=== PATIENT | male | born 1955 | race Caucasian/White ===

== ENCOUNTER 2017-05-06 20:36 | Inpatient (IN) ==
[2017-05-06] MEDS ORDERED: ALBUTEROL/IPRATROPIUM 3 ML NEB RESP TX STA (21:34)
[2017-05-06 21:53] LABS: Basophils % 0.1 % (0.0-0.8); Eosinophils % 0.4 % (0.00-10.9); Hematocrit 27.5 VOL% (42.0-52.0); Hemoglobin 9.6 GM/DL (14.0-18.0); Immature Granulocytes % 0.6 %; Immature Granulocytes Absolute 0.06 #; Lymphocytes % 9.6 % (21.2-54.2); Mean Corpuscular HGB Conc 34.9 GM/DL (32-36); Mean Corpuscular Hemoglobin 32 PG (27-34); Mean Corpuscular Volume 90.2 FL (87-102); Mean Platelet Volume 10.4 FL (9.6-12.0); Monocytes # 1.1 10*3/uL (0.11-0.8); Monocytes % 10.7 % (1.7-12.7); Neutrophils # 8.4 10*3/uL (1.4-7.4); Neutrophils % 78.6 % (38.7-73.9); Platelet Count 306 T/CUMM (130-400); Red Blood Count 3.05 MC/CUMM (3.8-5.5); White Blood Count 10.6 T/CUMM (4-12)
[2017-05-06] MEDS: ALBUTEROL 2.5 MG/3 ML NEB RESP TX SCH ×2 (22:00→22:20)
[2017-05-06 22:11] LABS: Apearance,Urine CLEAR (Clear); Bacteria,Urine Occasional /HPF (Few); Bilirubin,Urine Negative (Negative); Blood, Urine Small mg/dL (Negative); Glucose,Urine (UA) Negative (Negative); Ketones,Urine Negative (Negative); Mucus,Urine Occasional /LPF (Occasional); Nitrite,Urine Negative (Negative); Protein,Urine Negative; Urine Color Straw (Yellow); Urine Specific Gravity 1.003 (1.001-1.035); Urine Urobilinogen < 2.0 EU/DL (0.2-1.0); WBC,Urine 2 /HPF (0-6)
[2017-05-06 22:13] LABS: Alanine Aminotransferase 77 U/L (16-61); Albumin 2.3 G/DL (3.4-5.0); Alkaline Phosphatase 192 U/L (45-117); Aspartate Amino Transferase 55 U/L (0-37); Blood Urea Nitrogen 8 MG/DL (7-18); Calcium 8.2 MG/DL (8.5-10.1); Glucose 108 MG/DL (74-106); Magnesium 1.8 MG/DL (1.8-2.4); Osmolality,Calculated 253.2 MOS/KG (273-304); Sodium 127 MMOL/L (136-145); Troponin I Only < 0.015 NG/ML (0.00-0.045)
[2017-05-06 22:42] LABS: Platelet Estimate Adequate
[2017-05-06] MEDS ORDERED: PROMETHAZINE 25 MG/1 ML VIAL IM PRN (23:24)
[2017-05-06] MEDS ORDERED: DEXTROSE 5% NACL 0.45% 1,000 ML IV SCH (23:30)
[2017-05-06] MEDS ORDERED: MORPHINE 10 MG/1 ML VIAL IV STA (23:30)
[2017-05-06] MEDS ORDERED: ONDANSETRON 4 MG/2 ML VIAL IV STA (23:30)
[2017-05-06] MEDS ORDERED: methylPREDNISolone SOD SUC 125 MG/2 ML VIAL IV STA (23:32)
[2017-05-06] MEDS ORDERED: ONDANSETRON 4 MG/2 ML VIAL ONE (23:35)
[2017-05-06] MEDS ORDERED: MORPHINE 2 MG/1 ML SYRINGE ONE (23:36)
[2017-05-06] MEDS ORDERED: methylPREDNISolone SOD SUC 125 MG/2 ML VIAL ONE (23:36)
--- NOTE | 2017-05-07 00:26 | Emergency Department Note ---
I, Meghan Cortes, am scribing for, and in the presence of, Riley Hernandez MD 21: 40. IMary Kevin Lee, MD, personally performed the services described in this documentation, ascribed by Meghan Cortes in my presence, and it is both accurate and complete . Arrival - Arrival Chief Complaint: Shortness of Breath Stated Complaint: sob/had a cather removed today/has not voided much ED Nursing Triage Note: TO ER PER WHEELCHAIR. WAS SEEN BY UROLOGIST TODAY AND HAD CATHETER TAKEN OUT, SINCE THEN PATIENT HAS NOT BEEN ABLE TO VOID. PATIENT ALSO REPORTS HAVING SOME SHORTNESS OF BREATH THAT BEGAN EARLY THIS AM AROUND 0630. PATIENT STATES HAS BEEN RUNNING A LOW GRADE FEVER WELL. RECENTLY HAD PORTION OF HIS LUNG REMOVED. Mode of Arrival: Wheelchair Limitations: No Limitations Source: Patient, Significant other - History of Present Illness HPI Narrative: Pt is a 62 y/o male who came to ED with c/o SOB that started this morning and has worsened throughout the day. Pt had left lung removed by Dr. Acevedo in [place] on April 14, 2017, due to CA found and reports exercising daily until today. Pt had catheter taken out today at Dr. Alfie Argueta, and no output since, along with fever running at 100.4-100.5. Spouse notes pt hasbeen wearing compression hoses due to swelling bilateral lower extremities. Pt's PCP is Dr. El Argueta, and was going to do ECHO but waiting til insurance approves for next week. Pt also has enlarged prostate. Pt is a smoker. Onset (ago): hour(s) Consistency: constant Severity: moderate Severity scale (1-10): 8 Quality: fullness Allergies/Adverse Reactions: Allergies Allergy/AdvReac Type Severity Reaction Status Date / Time Gatifloxacin [From Tequin] Allergy Intermediate RASH Verified 05/06/17 21:17 Home Medications: Home Medications Medication Instructions Recorded Confirmed Type Hydroxychloroquine [Plaquenil] 200 mg PO DAILY 07/03/16 03/19/17 History Tamsulosin [Flomax] 0.4 mg PO BID 07/03/16 03/19/17 History Omeprazole [Prilosec] 20 mg PO BID 03/05/17 03/10/17 History Tiotropium Br/Olodaterol HCl 4 gm IH DAILY 03/05/17 03/19/17 History [Stiolto Respimat Inhal [place]] Hydrocodone/Acetaminophen 5 - 325 mg PO QID 03/10/17 03/19/17 History [Hydrocodon-Acetaminophen 5-325] Review of System - Review of System 12 point system: reviewed and no additional remarkable complaints except as stated - Review of System Constitutional: Present: fever (100.4-100.5). Absent: chills Head/Ears/Nose/Throat: Absent: sore throat Respiratory: Present: respiratory distress. Absent: cough Cardiovascular: Present: edema (bilateral lower extremities). Absent: chest pain Gastrointestinal: Absent: nausea Genitourinary male: Present: other (no output after catheter taken out) Musculoskeletal: Absent: arm pain, back pain Skin: Absent: rash Neurological: Absent: headache Medical,Surgical,& Family Hx - Medical History Cardio: History of: Hypertension Psychological: No history of: Anxiety Disorders, ADHD, Behavior Problems, Bipolar Disorder, Depression, Previous Suicide Attempt, Psychiatric/Substance Abuse Tx, Schizophrenia, Violent Behavior, Psychiatric Problems Neurology: No history of: Seizures HEENT: History of: Ear Problem, Eye Problem (left eye cataract) Endocrine: History of: Endocrine Problems (Lupus) Rheumatology: History of;: Systemic Lupus Erythematosus Respiratory: History of: Asthma, Bronchitis, COPD, Respiratory Problems (FLU VAC -NO; PNEU VAC-YES 06/2016. EMPHYSEMA, SINUSITIS.) Genitourinary: History of: Prostate Problems Gastrointestinal: History of: GERD Musculoskeletal: History of: Back/Neck Problems (PT BEING TREATED FOR PAIN.), Herniated Disk Hematology: No history of: Blood Transfusion Reaction Other: History of: Cancer (skin cancer) - Surgical History Cardiac Surgeries: Patient Denies: Cardiac Catheterization Thoracic Surgeries: Surgical HX of;: Lobectomy Patient denies;: Organ Transplant HEENT Surgeries: Patient denies: Eye Surgery Abdominal Surgeries: Surgical HX of: Abdominal Surgery, Hernia Repair - Family History Family History: Reports;: Family Cancer (Father - skin cancer), Family Diabetes (Father), Family Stroke (dad) Denies;: Family Heart Disease (Mother (pacemaker, CHF)) - Social History Smoking Status: Former smoker Frequency of Alcohol Use: None Type of Drug Use: None Marital Status: Lives With:: Spouse Functional capacity: independent ambulation Exam Vital Signs: Vital Signs Temperature 99.3 F 05/06/17 21:08 Pulse Rate 113 H 05/06/17 23:20 Respiratory Rate 22 05/06/17 23:20 Blood Pressure 146/88 05/06/17 21:08 O2 Sat by Pulse Oximetry 99 05/06/17 23:20 - General General appearance: alert, in distress (mildly) - Head Head exam: Present: atraumatic, normocephalic - Eye Eye exam: Present: PERRL, EOMI - ENT ENT exam: Present: mucous membranes moist. Absent: mucous membranes dry - Neck Neck exam: Present: full ROM. Absent: tenderness - Chest Chest inspection: Present: symmetric chest wall rise. Absent: tenderness - Respiratory Respiratory exam: Present: accessory muscle use. Absent: normal lung sounds bilaterally (left side has no breath sounds; right side has nml sounds), respiratory distress - Cardiovascular Cardiovascular exam: Present: tachycardia, normal heart sounds - Abdominal Exam Abdominal exam: Present: soft. Absent: tenderness - Extremities Exam Extremities exam: Present: full ROM. Absent: tenderness, pedal edema ( compression hoses are present bilaterally) - Neurological Exam Neurological exam: Present: alert, oriented X3, CN II-XII intact. Absent: motor sensory deficit - Psychiatric Psychiatric exam: Present: normal affect, normal mood - Skin Skin exam: Present: warm, dry Course Course Narrative: pts SOB remained stable during ED stay. sats and hr remained stable. Offered transfer back to thoracic surgery however family and pt refused wants to stay here. will admit to Dr. argueta with consult to peter. Results - Labs CBC & BMP: 05/06/17 21:36 05/06/17 21:36 Lab Results: I have reviewed the patients labs Labs: Laboratory Tests 05/06/17 21:36 WBC 10.6 RBC 3.05 L Hgb 9.6 L Hct 27.5 L Plt Count 306 Neut % (Auto) 78.6 H Lymph % (Auto) 9.6 L Neut # (Auto) 8.4 H Lymph # (Auto) 1.0 L [place] # (Auto) 1.1 H Laboratory Tests 05/06/17 05/06/17 05/06/17 21:36 21:36 21:36 D-Dimer, Quantitative 3.9 Sodium 127 L Potassium 4.0 Chloride 91 L Carbon Dioxide 29 Creatinine 0.60 L GFR Calculation 121 Glucose 108 H Calculated Osmolality 253.2 L Calcium 8.2 L AST 55 H ALT 77 H Alkaline Phosphatase 192 H Troponin I < 0.015 B-Natriuretic Peptide Total Protein 6.0 L Albumin 2.3 L Globulin 3.7 H Albumin/Globulin Ratio 0.6 L Urine Color Straw Urine Appearance Clear Urine pH 8.0 Ur Specific [place] 1.003 Urine Blood Small Urine Urobilinogen < 2.0 H Urine WBC 2 Urine Bacteria Occasional Urine Mucus Occasional 05/06/17 21:36 D-Dimer, Quantitative Sodium Potassium Chloride Carbon Dioxide Creatinine GFR Calculation Glucose Calculated Osmolality Calcium AST ALT Alkaline Phosphatase Troponin I B-Natriuretic Peptide 169 H Total Protein Albumin Globulin Albumin/Globulin Ratio Urine Color Urine Appearance Urine pH Ur Specific Desmet Urine Blood Urine Urobilinogen Urine WBC Urine Bacteria Urine Mucus Laboratory Tests 05/06/17 21:36 Platelet Estimate Adequate Pappenheimer Bodies - Diagnostic Findings Procedure: CT: report reviewed by me (CTA chest: In this pt who had a left pneumonectomy, there is an air-fluid level in the left hemithorax raising concern for a bronchopleural fistula. Clinical correlation is advised. There is right lung opacification consistent with infection and/or edema. There is a moderate pericardial effusion.) Disposition Clinical Impression: Pleural effusion, SOB (shortness of breath) Case discussed with: patient, patient's family Disposition: Still a Patient Condition: Guarded
[2017-05-07] MEDS: HYDROmorphone 2 MG/1 ML VIAL IV PRN ×5 (01:39→22:06)
[2017-05-07] MEDS: ALBUTEROL/IPRATROPIUM 3 ML NEB RESP TX SCH ×3 (02:07→13:41)
--- NOTE | 2017-05-07 06:01 | EKG Report ---
Stationary ECG Study [facility] ER Test Date: 05/06/2017 9:20:22 PM Pat Name: LUISANA BARNETTBROOK Department: Room: 296 Gender: M Field Associate: Ming : 1955 Requested by: Riley Walters Order Number: [id number] Reading MD: ZEN RUIZ Intervals [place] Rate: 103 P: 999 [place]: 0 QRS: 82 QRSD: 118 T: -68 QT: 408 QTc: 468 Interpretive Statements SUPRAVENTRICULAR TACHYCARDIA CANNOT RULE OUT ANTERIOR INFARCT, AGE UNDETERMINED INFERIOR INFARCT, AGE UNDETERMINED MODERATE ST DEPRESSION Baseline artifact makes interpretation difficult. Electronically Signed On 05-07-17 09:49:31 CDT by ZEN RUIZ [email or web address]
--- NOTE | 2017-05-07 06:38 | CT Report ---
CT chest PE study Indication: Shortness of breath one month postop from left pneumonectomy. CT CHEST WITH CONTRAST, PE PROTOCOL DLP: 251 mGy*cm. One or more of the following dose reduction techniques was used: Automated exposure control, adjustment of the mA and/or kV according the patient size, or use of iterative reconstruction techniques. Comparison: 02/25/2017 Technique: Axial CT images of the chest were obtained during the pulmonary arterial phase of contrast injection. Coronal reconstructions were provided. Omnipaque 350, 80 cc. Findings: Central and lobar pulmonary arteries are unremarkable. Suboptimal opacification of the arterial system for peripheral pulmonary arterial evaluation. Postoperative changes left pneumonectomy. Left hemithorax contains fluid and air. There is a moderate right pleural effusion with atelectasis and/or consolidation of the right lower lobe. No right pneumothorax. In the anterior right upper lobe, patchy groundglass opacity noted. Heart size is normal. Moderate pericardial effusion. Aorta is nonaneurysmal. Calcified atheromatous disease is present with very mild. Limited views of the upper abdomen show no acute pathology. Degenerative changes thoracic spine are present. Impression: 1. Status post left pneumonectomy. Left hemithorax is filled with fluid and air. Cannot exclude bronchopleural fistula. 2. Right pleural effusion with atelectasis or infiltrate right lower lobe, and patchy groundglass opacification of the anterior right upper lobe. Query pneumonia or edema. 3. Pericardial effusion. PROCEDURE INTERPRETED AT [facility] DEPARTMENT OF RADIOLOGY Final Report Signed by: Ez Alanis M.D.
--- NOTE | 2017-05-07 07:00 | XRay Report ---
XR chest 1V portable Indication: Shortness of breath. Postop left pneumonectomy one month ago. Chest one view: Comparison 07/03/2016 shows postoperative changes of left pneumonectomy with fluid and a small amount of air in the left hemithorax. There is no mediastinal shift. Very small right pleural effusion is noted at the right lung base, and in general, interstitial prominence of the right lung is present. Heart size is indeterminate. Impression: Anticipated postoperative changes left pneumonectomy. Tiny right pleural effusion. Increased interstitial prominence of the right lung noted, nonspecific. PROCEDURE INTERPRETED AT [facility] DEPARTMENT OF RADIOLOGY Final Report Signed by: Ez Alanis M.D.
--- NOTE | 2017-05-07 07:04 | XRay Report ---
XR KUB Indication: Constipation. Abdomen one view: IV contrast is present in the urinary collecting system. Duplicated right left urinary collecting system incidentally noted. No small bowel dilatation. Normal amount of stool and gas is shown the colon. No free air. Impression: Unremarkable bowel gas pattern. Duplicated left urinary collecting system. PROCEDURE INTERPRETED AT [facility] DEPARTMENT OF RADIOLOGY Final Report Signed by: Ez Alanis M.D.
[2017-05-07] MEDS ORDERED: POLYETHYLENE GLYCOL POWDER 17 GM PACK PO PRN (07:43)
[2017-05-07] MEDS ORDERED: ALBUTEROL 2.5 MG/3 ML NEB RESP TX PRN (07:44)
--- NOTE | 2017-05-07 07:54 | Family Practice History&Phys ---
Assessment and Plan (1) Acute dyspnea Status: Acute Assessment and plan: 05/07/2017: Bronchodilator therapy will be added. Pulmonary was consulted by the emergency room physician. Current Visit: Yes (2) Pericardial effusion Status: Acute Assessment and plan: 05/07/2017: Echocardiogram has been ordered. Current Visit: Yes (3) Hyponatremia Status: Acute Assessment and plan: 05/07/2017: Patient is placed on fluid restrictions. Serum and urine osmolality and sodium have been ordered. Current Visit: Yes (4) H/O pneumonectomy Status: Acute Assessment and plan: 05/07/2017: I will ask Dr. Larkin to see the patient concerning his CT findings. Current Visit: Yes History of Present Illness Chief complaint: Shortness of breath History of present illness: Mr. Gardiner is a 62 year old male Patient is a 62-year-old white male who presented to the emergency room on the day of admission with increasing shortness of breath. Patient is postoperative left pneumonectomy on 04/14/[address] Acevedo in [place]. Patient had a CT of the chest which showed left pleural effusion as expected but the radiologist suggests there may be a bronchopleural fistula as well. Patient was also noted to have a moderate pericardial effusion. The ER physician felt that admission was warranted and he was admitted here instead of being transferred back to his operating surgeon. Patient states he is not having any chest pain but he is having increasing orthopnea and dyspnea with exertion. He has had a low-grade fever of 100.4. Patient's also been having increasing edema of his lower extremities. Home Medications Medication Instructions Recorded Confirmed Type ALPRAZolam [Alprazolam] 0.25 mg PO Q6HR PRN 05/07/17 05/07/17 History Docusate Sodium 100 mg PO BID 05/07/17 05/07/17 History Hydrocodone/Acetaminophen 0.5 each PO Q4HR PRN 05/07/17 05/07/17 History [Hydrocodon-Acetaminophn 10-325] Ketorolac Tab [Toradol Tab] 10 mg PO Q4HR 05/07/17 05/07/17 History Metoprolol Succinate Xl [Toprol Xl] 25 mg PO DAILY 05/07/17 05/07/17 History Omeprazole [Omeprazole] 20 mg PO BID 08/17/17 08/17/17 History Polyethylene Glycol Powder 17 gm PO DAILY PRN 05/07/17 05/07/17 History [Miralax] Tamsulosin [Flomax] 0.4 mg PO BID 05/07/17 05/07/17 History Tiotropium Inhalation [Spiriva 18 mcg INH ONCE 05/07/17 05/07/17 History Handihaler] Allergies Allergy/AdvReac Type Severity Reaction Status Date / Time Gatifloxacin [From Tequin] Allergy Intermediate RASH Verified 05/06/17 21:17 - Constitutional Constitutional: Present: fatigue, fever(s), malaise, weight gain. Absent: chills - EENT Eyes: Absent: blurry vision, loss of vision Ears: Absent: decreased hearing, ear pain Nose, mouth and throat: Absent: hoarseness, nasal congestion, sinus pressure, sore throat - Cardiovascular Cardiovascular: Present: dyspnea on exertion, orthopnea. Absent: chest pain at rest, chest pain with activity, palpitations - Respiratory Respiratory: Present: cough, dyspnea, dyspnea on exertion - Gastrointestinal Gastrointestinal: Absent: abdominal pain, diarrhea, hematemesis, hematochezia, nausea, vomiting - Genitourinary Genitourinary: Absent: flank pain, hematuria, urinary frequency - Musculoskeletal Musculoskeletal: Absent: back pain - Neurological Neurological: Absent: focal weakness, numbness, paresthesias - Psychiatric Psychiatric: Absent: anxiety, depression - Endocrine Endocrine: Absent: fatigue, polydipsia, polyphagia - Hematologic/Lymphatic Hematologic/Lymphatic: Absent: easy bleeding, easy bruising Medical,Surgical,& Family Hx - Medical History Cardio: History of: Hypertension Psychological: No history of: Anxiety Disorders, ADHD, Behavior Problems, Bipolar Disorder, Depression, Previous Suicide Attempt, Psychiatric/Substance Abuse Tx, Schizophrenia, Violent Behavior, Psychiatric Problems Neurology: No history of: Seizures HEENT: History of: Ear Problem, Eye Problem (left eye cataract) Endocrine: History of: Endocrine Problems (Lupus) Rheumatology: History of;: Systemic Lupus Erythematosus Respiratory: History of: Asthma, Bronchitis, COPD (Lung cancer), Respiratory Problems (FLU VAC-NO; PNEU VAC-YES 06/2016. EMPHYSEMA, SINUSITIS.) Genitourinary: History of: Prostate Problems Gastrointestinal: History of: GERD Musculoskeletal: History of: Back/Neck Problems (PT BEING TREATED FOR PAIN.), Herniated Disk Hematology: No history of: Blood Transfusion Reaction Other: History of: Cancer (skin cancer) - Surgical History Cardiac Surgeries: Patient Denies: Cardiac Catheterization Thoracic Surgeries: Surgical HX of;: Lobectomy Patient denies;: Organ Transplant HEENT Surgeries: Patient denies: Eye Surgery Abdominal Surgeries: Surgical HX of: Abdominal Surgery, Hernia Repair - Family History Family History: Reports;: Family Cancer (Father - skin cancer), Family Diabetes (Father), Family Stroke (dad) Denies;: Family Heart Disease (Mother (pacemaker, CHF)) - Social History Smoking Status: Former smoker Frequency of Alcohol Use: None Type of Drug Use: None Exam - Constitutional Vitals: Period Temp Pulse Resp BP Sys/Bey Pulse Ox Last 24 Hr 97.5 F-99.3 F 101-118 18-24 120-149/68-88 97-110 Exam: General: Objective patient is a well-developed white male who is dyspneic at rest. Patient is lying in bed with his head elevated. Patient is able to give a good history. Patient appears anxious HEENT: Pupils equal and reactive to light. Patent nares and airway Neck: No meningismus, adenopathy, thyromegaly. There are no auscultated carotid bruits. Cardiovascular: Regular rhythm. No murmurs or gallops Chest: Decreased breath sounds on the left are noted. Abdomen: Soft nontender to palpation No masses, rebound, guarding or tenderness. Neuro: Cranial nerves intact and DTRs and strength symmetric in all extremities. Dermatologic: No evidence of abnormal lesions or masses. Musculoskeletal: There is no joint swelling or tenderness or deformity. Extremities: There is no calf swelling but patient has 3+ pitting pretibial edema Results - Labs CBC & BMP: 05/06/17 21:36 05/06/17 21:36 Lab Results: I have reviewed the past 24 hour labs - Diagnostic Findings Procedure: CT - chest: report reviewed by me (CT report noted.)
--- NOTE | 2017-05-07 07:56 | EKG Report ---
Stationary ECG Study [facility] Test Date: 05/07/2017 7:56:35 AM Pat Name: LUISANA SIERRA Department: Room: 296 Gender: M Utility [employer]er [employer]: HOLLY : 1955 Requested by: Luisana Iverson Order Number: [id number] Reading MD: ZEN RUIZ Intervals [place] Rate: 105 P: 66 [place]: 176 QRS: 40 QRSD: 96 T: 54 QT: 365 QTc: 426 Interpretive Statements SINUS TACHYCARDIA NONSPECIFIC T-WAVE ABNORMALITY ABNORMAL RHYTHM ECG Electronically Signed On 05-07-17 09:55:31 CDT by ZEN RUIZ [email or web address]
--- NOTE | 2017-05-07 08:54 | Pulmonology Consult Note ---
Assessment and Plan (1) Lung cancer Status: Acute Assessment and plan: The patient has been found to have a left lung cancer and had a left pneumonectomy about 3 weeks ago. He did fairly well with surgery early on. Current Visit: Yes (2) Pleural effusion Status: Acute Assessment and plan: He does have some fluid in the right chest and will try to diurese a little. Current Visit: Yes (3) SOB (shortness of breath) Status: Acute Assessment and plan: His shortness of breath came on fairly suddenly and suggests some mild overload. He does have some COPD also. Current Visit: Yes (4) Pericardial effusion Status: Acute Assessment and plan: He is getting an echocardiogram. Current Visit: Yes (5) Hyponatremia Status: Acute Assessment and plan: His sodium is 127. Current Visit: Yes (6) H/O pneumonectomy Status: Acute Assessment and plan: He has had a left pneumonectomy and did fairly well with the surgery. Current Visit: Yes History of Present Illness Chief complaint: Shortness of breath History of present illness: Mr. Gardiner is a 62 year old white male that was recently found to have a left lung cancer. He has a long history of cigarette smoking and has a component of COPD. He went to [place] and had a left pneumonectomy on . He said he did well with surgery and was feeling well until just recently. He came in with worsening shortness of breath. He did go back to [place] with some swelling of his legs. He said he had negative Dopplers of his legs and was given some Lasix. Then he had some problems with a sodium dropping. Shortness of breath has only gotten worse here lately. He had a CT that does show a right pleural effusion and he does appear to be volume overloaded. Home Medications Medication Instructions Recorded Confirmed Type ALPRAZolam [Alprazolam] 0.25 mg PO Q6HR PRN 05/07/17 05/07/17 History Docusate Sodium 100 mg PO BID 05/07/17 05/07/17 History Hydrocodone/Acetaminophen 0.5 each PO Q4HR PRN 05/07/17 05/07/17 History [Hydrocodon-Acetaminophn 10-325] Ketorolac Tab [Toradol Tab] 10 mg PO Q4HR 05/07/17 05/07/17 History Metoprolol Succinate Xl [Toprol Xl] 25 mg PO DAILY 05/07/17 05/07/17 History Omeprazole [Omeprazole] 20 mg PO BID 05/07/17 05/07/17 History Polyethylene Glycol Powder 17 gm PO DAILY PRN 05/07/17 05/07/17 History [Miralax] Tamsulosin [Flomax] 0.4 mg PO BID 05/07/17 05/07/17 History Tiotropium Inhalation [Spiriva 18 mcg INH ONCE 05/07/17 05/07/17 History Handihaler] Allergies Allergy/AdvReac Type Severity Reaction Status Date / Time Gatifloxacin [From Tequin] Allergy Intermediate RASH Verified 05/06/17 21:17 - Constitutional Constitutional: Present: fatigue, fever(s), weakness, weight gain. Absent: chills - EENT Eyes: Absent: loss of vision Ears: Absent: decreased hearing Nose, mouth and throat: Absent: dysphagia, headache(s), sinus pressure - Cardiovascular Cardiovascular: Present: chest pain at rest, dyspnea, edema, orthopnea - Respiratory Respiratory: Present: dyspnea. Absent: cough, hemoptysis, change in phlegm color - Gastrointestinal Gastrointestinal: Absent: abdominal pain, change in bowel habits, dysphagia, nausea, vomiting - Genitourinary Genitourinary: Absent: difficulty urinating, dysuria, hematuria - Musculoskeletal Musculoskeletal: Absent: arthralgias - Neurological Neurological: Absent: abnormal speech, focal weakness - Psychiatric Psychiatric: Present: anxiety Exam (Pulmonay) H&P - Constitutional Vitals: Period Temp Pulse Resp BP Sys/Bey Pulse Ox Last 24 Hr 97.5 F-99.3 F 101-118 18-24 120-153/68-88 97-110 General appearance: mild distress (The patient is a thin middle-aged man that does appear a little short of breath.), under weight - Head Head exam: Present: normal inspection, normocephalic - Eye Eye exam: Present: EOMI. Absent: scleral icterus Pupils: Present: SANTO - ENT ENT exam: Present: normal exam - Neck Neck exam: Present: normal inspection, other (He does have increased JVD). Absent: lymphadenopathy, thyromegaly - Respiratory Respiratory exam: Present: rales, other (Patient has a left pneumonectomy and the chest wall is healing well. He does have some crackles in his right base.) - Cardiovascular Cardiovascular exam: Present: JVD, regular rate and rhythm. Absent: gallop, rubs, systolic murmur - GI/Abdominal GI/Abdominal exam: Present: normal bowel sounds, soft. Absent: organomegaly, tenderness - Extremities Exam Extremities exam: Present: edema. Absent: calf tenderness - Neurological Exam Neurological exam: Present: alert, oriented X3, CN II-XII intact - Psychiatric Psychiatric exam: Present: anxious - Skin Skin exam: Present: warm, dry Medical,Surgical,& Family Hx - Medical History Cardio: History of: Hypertension Psychological: No history of: Anxiety Disorders, ADHD, Behavior Problems, Bipolar Disorder, Depression, Previous Suicide Attempt, Psychiatric/Substance Abuse Tx, Schizophrenia, Violent Behavior, Psychiatric Problems Neurology: No history of: Seizures HEENT: History of: Ear Problem, Eye Problem (left eye cataract) Endocrine: History of: Endocrine Problems (Lupus) Rheumatology: History of;: Systemic Lupus Erythematosus Respiratory: History of: Asthma, Bronchitis, COPD (Lung cancer), Respiratory Problems (FLU VAC-NO; PNEU VAC-YES 06/2016. EMPHYSEMA, SINUSITIS.) Genitourinary: History of: Prostate Problems Gastrointestinal: History of: GERD Musculoskeletal: History of: Back/Neck Problems (PT BEING TREATED FOR PAIN.), Herniated Disk Hematology: No history of: Blood Transfusion Reaction Other: History of: Cancer (skin cancer) - Surgical History Cardiac Surgeries: Patient Denies: Cardiac Catheterization Thoracic Surgeries: Surgical HX of;: Lobectomy Patient denies;: Organ Transplant HEENT Surgeries: Patient denies: Eye Surgery Abdominal Surgeries: Surgical HX of: Abdominal Surgery, Hernia Repair - Family History Family History: Reports;: Family Cancer (Father - skin cancer), Family Diabetes (Father), Family Stroke (dad) Denies;: Family Heart Disease (Mother (pacemaker, CHF)) - Social History Smoking Status: Former smoker Frequency of Alcohol Use: None Type of Drug Use: None Results - Labs CBC & BMP: 05/06/17 21:36 05/06/17 21:36 - Diagnostic Findings Procedure: Chest x-ray: image reviewed by me, report reviewed by me (Chest x- ray shows a left pneumonectomy. He does have some mild congestion in the right lung.), CT - chest: image reviewed by me, report reviewed by me (There are no signs of emboli. He has a pericardial effusion and a right pleural effusion)
[2017-05-07 08:56] LABS: Troponin I Only < 0.015 NG/ML (0.00-0.045)
[2017-05-07] MEDS: methylPREDNISolone SOD SUC 40 MG/1 ML VIAL IV SCH ×2 (10:17→16:40)
[2017-05-07 11:42] LABS: Troponin I Only < 0.015 NG/ML (0.00-0.045)
[2017-05-07] MEDS: PANTOPRAZOLE 40 MG TABLET PO SCH ×3 (11:44→22:07)
[2017-05-07] MEDS: TAMSULOSIN 0.4 MG CAPSULE PO SCH ×2 (11:56→22:07)
[2017-05-07] MEDS: METOPROLOL SUCCINATE XL 25 MG TABLET PO SCH (11:56)
[2017-05-07] MEDS: DOCUSATE SODIUM 100 MG CAPSULE PO SCH ×2 (11:56→22:07)
[2017-05-07 14:05] LABS: Troponin I Only < 0.015 NG/ML (0.00-0.045)
[2017-05-07] MEDS: FUROSEMIDE 40 MG/4 ML VIAL IV SCH (16:15)
[2017-05-07 17:15] LABS: Troponin I Only < 0.015 NG/ML (0.00-0.045)
[2017-05-07] MEDS: IPRATROPIUM 500 MCG/2.5 ML NEB RESP TX SCH (20:56)
[2017-05-07] MEDS: ALBUTEROL 2.5 MG/3 ML NEB RESP TX SCH (20:56)
[2017-05-07] MEDS: ALPRAZolam 0.25 MG TABLET PO PRN (22:07)
--- NOTE | 2017-05-07 23:49 | Cardiology Consult Note ---
Wilfredo Vidal Vanessa, RN, am scribing for, and in the presence of, Arie Fernandez MD 23:48. Assessment and Plan - Time spent with patient Time spent with patient: Greater than 30 minutes (Due to assessment, planning, documentation, medication review) Time spent discussing smoking cessation with patient: 3 to 10 minutes (1) Pericardial effusion Status: Acute Assessment and plan: 62-year-old WM with past medical history hypertension, chronic tobacco use, COPD , and recent diagnosis of lung cancer now status post left pneumonectomy 3 weeks ago. Postoperatively, he has developed increasing exertional dyspnea, orthopnea, and LE edema. CT chest with right pleural effusion and moderate pericardial effusion. April ASSESSMENT/PLAN: 1. PERICARDIAL EFFUSION- moderate pericardial effusion per CT chest. We will review further with echocardiogram. 2. ACUTE DYSPNEA- multifactorial due to COPD, lung CA s/p left pneumonectomy, and some mild volume overload with pleural effusion. Pulmonary following also. 3. HYPERTENSION- overall fairly well controlled. Continue as present. Adjust antihypertensives as medical condition evolves and indicates. 4. HYPONATREMIA- Na+ 127. Has been placed on fluid restriction. 5. LUNG CANCER - now s/p left pneumonectomy 3 weeks ago. Postoperative course initially fairly uneventful. 6. COPD- contributing factor of dyspnea. Continue current plan of care. Shortness of breath may be multifactorial Does have loss of some lung postop and some pleural effusions Has a pericardial effusion by CT but probably is not hemodynamically significant based on vital signs We'll check echo Doppler Diuresed gently Elevated head of bed Check albumin Continue optimizing patient of pulmonary treatment Could consider right thoracentesis which might help some of his symptoms Thank you for allowing me to participate in this patient's care. Current Visit: Yes (2) Acute dyspnea Status: Acute Assessment and plan: SEE PLAN OF CARE LISTED ABOVE. Current Visit: Yes (3) H/O pneumonectomy Status: Acute Assessment and plan: SEE PLAN OF CARE LISTED ABOVE. Current Visit: Yes (4) Lung cancer Status: Acute Assessment and plan: SEE PLAN OF CARE LISTED ABOVE. Current Visit: Yes (5) Smoker Status: Chronic Assessment and plan: SEE PLAN OF CARE LISTED ABOVE. Current Visit: No (6) Hyponatremia Status: Acute Assessment and plan: SEE PLAN OF CARE LISTED ABOVE. 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 Riley (June 2016) Mr. Gardiner is a 62 year old white male with risk factors significant for: hypertension and group home tobacco use. He recently quit smoking, February 2017. Patient does not follow routinely with a hand worker was seen by Dr. Riley in June 2016 for left sided chest pain. Subsequent exercise stress test was normal. Past medical history include lupus, GERD, enlarged prostate, skin cancer , asthma, and COPD. He was recently diagnosed with lung cancer and is now s/p left pneumonectomy on April 14 in [place]. Post operatively, he has done relatively well. In the last couple weeks, patient noticed some increasing edema of bilateral lower extremities and some shortness of breath. He was seen by cardiothoracic surgeon in [place], had venous ultrasound of BLE's, groin area and distal. He reports ultrasound was negative for DVT finding, and he was then given short trial of Lasix, developed some hyponatremia. He also began wearing thigh high DONA hose. Yesterday morning after waking up, he noticed a progressive worsening of his shortness of breath through the day, aggravated with exertion. He has had orthopnea, nonproductive cough, temp up to 100.4F over the last 2-3 days. He presented to [facility] ED for increasing shortness of breath. EKG demonstrated sinus tachycardia, HR 110, no ishemic changes. 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 Admitted to [facility] tele for further observation. Cardiology asked to see for further evaluation of pericardial effusion. Mr. Gardiner awake and alert this morning. Angelita and multiple family members present with him. Reports he does a fair amount of walking at home and has not had exertional chest tightness or pain. Admits exertional dyspnea walking to the mailbox and back, requiring increasing periods of rest. 3+ pillow orthopnea which has gradually worsened over the last few days. Cardiac isoenzymes x 2 sets have been normal. BP 133/71. Reports lower ext edema has now shifted from tibial and calf area to scrotal area, and reports recent swelling of upper thighs and lower abdomen. Echocardiogram has been obtained for further evaluation. Will review. CC: Ronnie Ferrari MD - Home Medications and Allergies Home Medications: Home Medications Medication Instructions Recorded Confirmed Type ALPRAZolam [Alprazolam] 0.25 mg PO Q6HR PRN 05/07/17 05/07/17 History Docusate Sodium 100 mg PO BID 05/07/17 05/07/17 History Hydrocodone/Acetaminophen 0.5 each PO Q4HR PRN 05/07/17 05/07/17 History [Hydrocodon-Acetaminophn 10-325] Ketorolac Tab [Toradol Tab] 10 mg PO Q4HR 05/07/17 05/07/17 History Metoprolol Succinate Xl [Toprol Xl] 25 mg PO DAILY 05/07/17 05/07/17 History Omeprazole [Omeprazole] 20 mg PO BID 05/07/17 05/07/17 History Polyethylene Glycol Powder 17 gm PO DAILY PRN 05/07/17 05/07/17 History [Miralax] Tamsulosin [Flomax] 0.4 mg PO BID 05/07/17 05/07/17 History Tiotropium Inhalation [Spiriva 18 mcg INH ONCE 05/07/17 05/07/17 History Handihaler] Allergies/Adverse Reactions: Allergies Allergy/AdvReac Type Severity Reaction Status Date / Time Gatifloxacin [From Tequin] Allergy Intermediate RASH Verified 05/06/17 21:17 - Constitutional Constitutional: Present: anorexia, fatigue, fever(s), lethargy, weakness, weight gain. Absent: chills, daytime sleepiness, frequent falls, night sweats, weight loss - EENT Eyes: Absent: blurry vision Ears: Present: decreased hearing Nose, mouth and throat: Absent: dysphagia, epistaxis, nasal congestion, sinus pressure, sore throat, vertigo - Cardiovascular Cardiovascular: Present: dyspnea on exertion, edema, orthopnea. Absent: chest pain at rest, chest pain with activity, claudication, diaphoresis, dyspnea, radiating jaw, neck or arm pain, lightheadedness, palpitations, PND - Respiratory Respiratory: Present: cough, dyspnea, dyspnea on exertion. Absent: hemoptysis, wheezing, pain on inspiration, change in phlegm color - Gastrointestinal Gastrointestinal: Present: early satiety. Absent: abdominal pain, bloating, constipation, diarrhea, dysphagia, heartburn, hematemesis, hematochezia, melena , nausea, vomiting, jaundice - Genitourinary Genitourinary: Present: difficulty urinating (rogel cath removed 05/06 (enlarged prostate) (Dr. Caitlin Ferrari)), scrotal swelling. Absent: hematuria - Musculoskeletal Musculoskeletal: Present: arthralgias, back pain, limited range of motion. Absent: myalgias - Neurological Neurological: Absent: abnormal speech, confusion, dizziness, syncope, tremor(s) - Psychiatric Psychiatric: Present: anxiety - Endocrine Endocrine: Absent: cold intolerance, heat intolerance - Hematologic/Lymphatic Hematologic/Lymphatic: Absent: easy bleeding, easy bruising Medical,Surgical,& Family Hx - Medical History Cardio: History of: Hypertension No history of: Cardiac Dysrhythmia, CHF, CAD, [place] Psychological: No history of: Anxiety Disorders, ADHD, Behavior Problems, Bipolar Disorder, Depression, Previous Suicide Attempt, Psychiatric/Substance Abuse Tx, Schizophrenia, Violent Behavior, Psychiatric Problems Neurology: No history of: Seizures HEENT: History of: Ear Problem, Eye Problem (left eye cataract) Endocrine: History of: Endocrine Problems (Lupus) No history of: Diabetes Mellitus (IDDM), Dyslipidemia, Thyroid Disorder Rheumatology: History of;: Systemic Lupus Erythematosus Respiratory: History of: Asthma, Bronchitis, COPD (Lung cancer), Respiratory Problems (FLU VAC-NO; PNEU VAC-YES 06/2016. EMPHYSEMA, SINUSITIS.) Genitourinary: History of: Prostate Problems Gastrointestinal: History of: GERD Musculoskeletal: History of: Back/Neck Problems (PT BEING TREATED FOR PAIN.), Herniated Disk Hematology: No history of: Blood Transfusion Reaction Other: History of: Cancer (skin cancer) - Surgical History Cardiac Surgeries: Patient Denies: Cardiac Catheterization Thoracic Surgeries: Surgical HX of;: Lobectomy Patient denies;: Organ Transplant HEENT Surgeries: Patient denies: Eye Surgery Abdominal Surgeries: Surgical HX of: Abdominal Surgery, Hernia Repair - Family History Family History: Reports;: Family Cancer (Father - skin cancer), Family Diabetes (Father), Family Stroke (dad) Denies;: Family Heart Disease (Mother (pacemaker, CHF)) - Social History Smoking Status: Former smoker Frequency of Alcohol Use: None Type of Drug Use: None Marital Status: Lives With:: Spouse Functional capacity: independent ambulation Physical Examination Vital Signs Temp Pulse Resp BP Pulse Ox 99.2 F 103 H 20 146/88 100 05/06/17 21:08 05/06/17 21:08 05/06/17 21:08 05/06/17 21:08 05/06/17 21:08 General: Present: Other (mild distress; underweight) HEENT: Present: EOMI, Normocephaly Neck: Present: JVD/HJR, No Bruit Cardiac: Present: Regular Rhythm, No Murmur, Tachycardia. Absent: Bradycardia Lungs: Present: Rales - Right, Oxygen, No Wheezes, No Rales, Other (faint crackles- RLL) Neuro: Present: Grossly Intact. Absent: Numbness, Tingling, Weakness, Resting Tremor Abdomen: Present: Soft, Active Bowel Sounds, No Masses. Absent: Ascites, Tender , Firm, Distended Skin: Present: Other (warm, dry). Absent: Rash, Suspicious Lesions, Bruising Incision: Present: Incision Site (left chest wall incision site intact, appears to be healing appropriately) Musculoskeletal: Present: Normal Range of Motion Extremities: Present: No Clubbing, No Cyanosis, Normal Upper Extr. Pulses (3+ bilaterally), Normal Lower Extr. Pulses (2-3+ bilaterally), Edema (2+ pretibial ; scrotal edema ), Capillary Refill. Absent: Mottled Result/EKG - Labs CBC & BMP: 05/06/17 21:36 05/06/17 21:36 Lab Results: I have reviewed the past 24 hour labs Labs: Laboratory Results - last 24 hr 05/06/17 05/06/17 05/06/17 21:36 21:36 21:36 WBC 10.6 RBC 3.05 L Hgb 9.6 L Hct 27.5 L MCV 90.2 MCH 32 MCHC 34.9 RDW 12.0 Plt Count 306 MPV 10.4 Neut % (Auto) 78.6 H Lymph % (Auto) 9.6 L [place] % (Auto) 10.7 Eos % (Auto) 0.4 Baso % (Auto) 0.1 Neut # (Auto) 8.4 H Lymph # (Auto) 1.0 L [place] # (Auto) 1.1 H Eos # (Auto) 0.0 Baso # (Auto) 0.0 Immature Gran % 0.6 Nucleated RBC % 0.0 Immature Gran # 0.06 Nucleated RBCs # 0.00 Platelet Estimate Adequate Immature Plt Fraction 3.6 Pappenheimer Bodies D-Dimer, Quantitative 3.9 Sodium Potassium Chloride Carbon Dioxide Anion Gap BUN Creatinine GFR Calculation BUN/Creatinine Ratio Glucose Serum Osmolality Calculated Osmolality Calcium Magnesium Total Bilirubin AST ALT Alkaline Phosphatase Total Creatine Kinase CK-MB (CK-2) Troponin I B-Natriuretic Peptide Total Protein Albumin Globulin Albumin/Globulin Ratio Urine Color Straw Urine Appearance Clear Urine pH 8.0 Ur Specific [place] 1.003 Urine Protein Negative Urine Glucose (UA) Negative Urine Ketones Negative Urine Blood Small Urine Nitrate Negative Urine Bilirubin Negative Urine Urobilinogen < 2.0 H Urine Leukocytes Negative Urine WBC 2 Urine Bacteria Occasional Urine Mucus Occasional Ur Culture Indicated? Not indicated Urine Osmolality Ur Random Sodium 05/06/17 05/06/17 05/07/17 21:36 21:36 08:06 WBC RBC Hgb Hct MCV MCH MCHC RDW Plt Count MPV Neut % (Auto) Lymph % (Auto) [place] % (Auto) Eos % (Auto) Baso % (Auto) Neut # (Auto) Lymph # (Auto) [place] # (Auto) Eos # (Auto) Baso # (Auto) Immature Gran % Nucleated RBC % Immature Gran # Nucleated RBCs # Platelet Estimate Immature Plt Fraction Pappenheimer Bodies D-Dimer, Quantitative Sodium 127 L Potassium 4.0 Chloride 91 L Carbon Dioxide 29 Anion Gap 11.0 BUN 8 Creatinine 0.60 L GFR Calculation 121 BUN/Creatinine Ratio 13.00 Glucose 108 H Serum Osmolality Calculated Osmolality 253.2 L Calcium 8.2 L Magnesium 1.8 Total Bilirubin 0.50 AST 55 H ALT 77 H Alkaline Phosphatase 192 H Total Creatine Kinase 97 CK-MB (CK-2) 3.3 Troponin I < 0.015 < 0.015 B-Natriuretic Peptide 169 H Total Protein 6.0 L Albumin 2.3 L Globulin 3.7 H Albumin/Globulin Ratio 0.6 L Urine Color Urine Appearance Urine pH Ur Specific [place] Urine Protein Urine Glucose (UA) Urine Ketones Urine Blood Urine Nitrate Urine Bilirubin Urine Urobilinogen Urine Leukocytes Urine WBC Urine Bacteria Urine Mucus Ur Culture Indicated? Urine Osmolality Ur Random Sodium 05/07/17 05/07/17 05/07/17 10:55 Unknown Unknown WBC RBC Hgb Hct MCV MCH MCHC RDW Plt Count MPV Neut % (Auto) Lymph % (Auto) [place] % (Auto) Eos % (Auto) Baso % (Auto) Neut # (Auto) Lymph # (Auto) [place] # (Auto) Eos # (Auto) Baso # (Auto) Immature Gran % Nucleated RBC % Immature Gran # Nucleated RBCs # Platelet Estimate Immature Plt Fraction Pappenheimer Bodies D-Dimer, Quantitative Sodium Potassium Chloride Carbon Dioxide Anion Gap BUN Creatinine GFR Calculation BUN/Creatinine Ratio Glucose Serum Osmolality 268 L Calculated Osmolality Calcium Magnesium Total Bilirubin AST ALT Alkaline Phosphatase Total Creatine Kinase 88 CK-MB (CK-2) 3.3 Troponin I < 0.015 B-Natriuretic Peptide Total Protein Albumin Globulin Albumin/Globulin Ratio Urine Color Urine Appearance Urine pH Ur Specific [place] Urine Protein Urine Glucose (UA) Urine Ketones Urine Blood Urine Nitrate Urine Bilirubin Urine Urobilinogen Urine Leukocytes Urine WBC Urine Bacteria Urine Mucus Ur Culture Indicated? Urine Osmolality 195 Ur Random Sodium 05/07/17 Unknown WBC RBC Hgb Hct MCV MCH MCHC RDW Plt Count MPV Neut % (Auto) Lymph % (Auto) [place] % (Auto) Eos % (Auto) Baso % (Auto) Neut # (Auto) Lymph # (Auto) [place] # (Auto) Eos # (Auto) Baso # (Auto) Immature Gran % Nucleated RBC % Immature Gran # Nucleated RBCs # Platelet Estimate Immature Plt Fraction Pappenheimer Bodies D-Dimer, Quantitative Sodium Potassium Chloride Carbon Dioxide Anion Gap BUN Creatinine GFR Calculation BUN/Creatinine Ratio Glucose Serum Osmolality Calculated Osmolality Calcium Magnesium Total Bilirubin AST ALT Alkaline Phosphatase Total Creatine Kinase CK-MB (CK-2) Troponin I B-Natriuretic Peptide Total Protein Albumin Globulin Albumin/Globulin Ratio Urine Color Urine Appearance Urine pH Ur Specific [place] Urine Protein Urine Glucose (UA) Urine Ketones Urine Blood Urine Nitrate Urine Bilirubin Urine Urobilinogen Urine Leukocytes Urine WBC Urine Bacteria Urine Mucus Ur Culture Indicated? Urine Osmolality Ur Random Sodium 38.0 - Diagnostic Findings Procedure: Chest x-ray: report reviewed by me, image reviewed by me, KUB x-ray: image reviewed by me, report reviewed by me, CT - chest: image reviewed by me, report reviewed by me - EKG EKG results: interpreted by me, no acute changes EKG shows: tachycardia (Sinus tachycardia with HR no greater than 105 bpm) Jim Vidal Dale, MD, personally performed the services described in this documentation, ascribed by Jeane Villalobos RN in my presence, and it is both accurate and complete [id number] .
[2017-05-08] MEDS: ALBUTEROL 2.5 MG/3 ML NEB RESP TX SCH ×4 (01:16→19:24)
[2017-05-08] MEDS: methylPREDNISolone SOD SUC 40 MG/1 ML VIAL IV SCH ×3 (02:30→16:30)
[2017-05-08 06:26] LABS: Calcium 8.4 MG/DL (8.5-10.1); Osmolality,Calculated 264.5 MOS/KG (273-304); Potassium 3.9 MMOL/L (3.5-5.1)
[2017-05-08 06:27] LABS: Bilirubin,Direct 0.2 MG/DL (0.0-0.20); Bilirubin,Indirect 0.6 MG/DL (0.0-1.0); Bilirubin,Total 0.8 MG/DL (0.2-1.0); Total Protein 5.4 G/DL (6.4-8.3)
[2017-05-08] MEDS: HYDROmorphone 2 MG/1 ML VIAL IV PRN ×3 (06:27→19:54)
[2017-05-08] MEDS: IPRATROPIUM 500 MCG/2.5 ML NEB RESP TX SCH (07:00)
--- NOTE | 2017-05-08 08:17 | Family Practice Progress Note ---
Family Practice - PN: Subj Interval history: Patient states she is feeling some better and his lower extremity edema is certainly reduced but he still having some scrotal edema. Patient's serum sodium was 132 this morning. I note that his liver enzymes are more elevated as well. Patient does have a history of chronic alcohol abuse and typically drinks about a sixpack of beer a day. 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 He is improved with fluid restriction. Exam (Progress Note) - Constitutional Vitals: Period Temp Pulse Resp BP Sys/Bey Pulse Ox Last 24 Hr 97 F-98.8 F 90-102 18-22 130-154/71-88 91-100 Exam: Objective a well-developed gentleman in no acute distress. He still has the head of his bed elevated but he states he is breathing better. He is not dyspneic at rest. Cardiovascular: Heart rate is rapid and regular. There is no murmurs or gallops. Respiratory: Absent breath sounds on the left of course. He has some very minimal right basilar rales. Abdomen: Abdomen soft and nontender. There is no palpable hepatosplenomegaly. Extremities: His lower extremity edema has resolved. Results - Labs CBC & BMP: 05/06/17 21:36 05/08/17 05:45 Lab Results: I have reviewed the past 24 hour labs Assessment and Plan (1) Acute dyspnea Status: Acute Assessment and plan: 05/07/2017: Bronchodilator therapy will be added. Pulmonary was consulted by the emergency room physician. 05/08/2017: Patient is improved this morning with diuresis. Current Visit: Yes (2) Pericardial effusion Status: Acute Assessment and plan: 05/07/2017: Echocardiogram has been ordered. 05/08/2017: Echocardiogram is pending. Current Visit: Yes (3) Hyponatremia Status: Acute Assessment and plan: 05/07/2017: Patient is placed on fluid restrictions. Serum and urine osmolality and sodium have been ordered. 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 Patient has responded to fluid restriction. Current Visit: Yes (4) H/O pneumonectomy Status: Acute Assessment and plan: 05/07/2017: I will ask Dr. Larkin to see the patient concerning his CT findings. 05/08/2017: Dr. Torres felt CV surgery consult is not necessary at this time. Current Visit: Yes
--- NOTE | 2017-05-08 08:56 | Pulmonology Progress Note ---
Pulmonary - PN: Subj Interval history: The patient is a 62-year-old white man that has a left lung cancer and he underwent a left pneumonectomy about 3 weeks ago. He was doing fairly well to the last few days when he came in short of breath. He has been coughing and having a little bit of chest congestion. He did have some swelling and peripheral edema. He did diurese fairly well yesterday. He feels like the breathing treatments help and his shortness of breath is better today. He is getting an echocardiogram to check his pericardial effusion. His chest x-ray still shows some haziness in his right lung. Overall he seems to be tolerating treatment fairly well. Exam (Progress Note) - Constitutional Vitals: Period Temp Pulse Resp BP Sys/Bey Pulse Ox Last 24 Hr 97 F-98.8 F 90-103 18-22 129-154/71-88 91-100 Exam: General appearance: mild distress (The patient is a thin middle-aged man that looks a little more comfortable at rest.) - Head Head exam: Present: normal inspection, normocephalic - Eye Eye exam: Present: EOMI. Absent: scleral icterus Pupils: Present: SANTO - ENT ENT exam: Present: normal exam - Neck Neck exam: Present: normal inspection, other (He does have increased JVD). Absent: lymphadenopathy, thyromegaly - Respiratory Respiratory exam: Present: His right lung has good air movement with some minimal rhonchi and crackles. - Cardiovascular Cardiovascular exam: Present: JVD, regular rate and rhythm. Absent: gallop, rubs, systolic murmur - GI/Abdominal GI/Abdominal exam: Present: normal bowel sounds, soft. Absent: organomegaly, tenderness - Extremities Exam Extremities exam: Present: His leg swelling is much better. - Neurological Exam Neurological exam: Present: alert, oriented X3, CN II-XII intact - Psychiatric Psychiatric exam: Present: anxious - Skin Skin exam: Present: warm, dry Results - Labs CBC & BMP: 05/06/17 21:36 05/08/17 05:45 - Diagnostic Findings Procedure: Chest x-ray: image reviewed by me, report reviewed by me (Chest x- ray still shows some mild haziness in the right lung.) Assessment and Plan (1) Lung cancer Status: Acute Assessment and plan: The patient has been found to have a left lung cancer and had a left pneumonectomy about 3 weeks ago. He did fairly well with surgery early on. Current Visit: Yes (2) Pleural effusion Status: Acute Assessment and plan: He does have some fluid in the right chest and will try to diurese a little. He is breathing better and will continue with some diuresis. Current Visit: Yes (3) SOB (shortness of breath) Status: Acute Assessment and plan: His shortness of breath came on fairly suddenly and suggests some mild overload. He does have some COPD also. He seems to be improving a little. We will continue with steroids and bronchodilator therapy and gentle diuresis. Current Visit: Yes (4) Pericardial effusion Status: Acute Assessment and plan: He is getting an echocardiogram. Current Visit: Yes (5) Hyponatremia Status: Acute Assessment and plan: His sodium is up to 132. Current Visit: Yes (6) H/O pneumonectomy Status: Acute Assessment and plan: He has had a left pneumonectomy and did fairly well with the surgery. Current Visit: Yes (7) Abnormal liver function test Status: Acute Assessment and plan: He may have some passive congestion but also he apparently drinks a lot of beer. Current Visit: Yes
--- NOTE | 2017-05-08 09:04 | XRay Report ---
Portable chest Date: 05/08/2017 Clinical history: Shortness of breath Comparison: 05/06/2017 Technique: Portable AP sitting chest Findings: The heart remains enlarged with calcified aortic knob. Recent left pneumonectomy with larger left pleural effusion. Progressive parenchymal findings in the right lung with minimally larger right pleural effusion. Degenerative changes are noted. Impression: Status post left pneumonectomy with progressive pleural fluid accumulation. Progressive edema/infiltration/atelectasis in the right lung with minimally larger small right pleural effusion. Follow-up chest x-ray recommended. PROCEDURE INTERPRETED AT [facility] DEPARTMENT OF RADIOLOGY Final Report Signed by: Dr. Rita Ferreira
[2017-05-08] MEDS: PANTOPRAZOLE 40 MG TABLET PO SCH ×3 (09:50→19:56)
[2017-05-08] MEDS: DOCUSATE SODIUM 100 MG CAPSULE PO SCH ×2 (09:50→19:55)
[2017-05-08] MEDS: METOPROLOL SUCCINATE XL 25 MG TABLET PO SCH (09:50)
[2017-05-08] MEDS: TAMSULOSIN 0.4 MG CAPSULE PO SCH ×2 (09:50→19:55)
[2017-05-08] MEDS: FUROSEMIDE 40 MG/4 ML VIAL IV SCH ×2 (09:52→16:24)
--- NOTE | 2017-05-08 11:05 | Ultrasound Report ---
US abdomen Indication: Elevated LFTs Comparison: None Technique: Multiple longitudinal and transverse real-time sonographic images of the abdomen are obtained. Findings: The liver measures 17 cm and demonstrates normal echogenicity without focal abnormality on submitted images. The sonographic Medina's sign is negative. The gallbladder is normal in size with no abnormal intraluminal echoes, wall thickening, or pericholecystic fluid. The common bile duct measures 0.39 cm in diameter. There is no evidence of intrahepatic ductal dilatation. The right and left kidneys measure 11.4 cm and 13 cm, respectively. There is no evidence of hydronephrosis. The spleen measures 10.5 cm without focal abnormality. Evaluation of the pancreas limited secondary to bowel gas.. IVC and aorta: Visualized portions grossly unremarkable.. No evidence of ascites. IMPRESSION: Essentially unremarkable sonographic evaluation of the abdomen. PROCEDURE INTERPRETED AT [facility] DEPARTMENT OF RADIOLOGY Final Report Signed by: Dr Romeo Tiwari
[2017-05-08 11:36] LABS: Anti SS-A Antibodies > 100 EU/ML; Anti SS-B Antibodies < 16 EU/ML
[2017-05-08 11:37] LABS: Anti-Nuclear Antibody Pattern SPECKLED; Double Stranded DNA Antibodies < 25.0 IU/ML
--- NOTE | 2017-05-08 13:44 | ECHO Report ---
Warner Gardiner Exam Date: 05/07/2017 09:07 Referring Physician: Technologist: Cathleen David Age: 62 Ht (in): 71 Wt (lb): 159 Gender: M Exam Location: [facility] Echo Indications: H/O pneumonectomy, hyponatremia, pericardial effusion, pleural effusion, SOB BP: 141 / 68 HR: 107 Rhythm: sinus tachycardia Technical Quality: Good IMPRESSIONS Left ventricular ejection fraction is estimated at > 55 %. Trivial to small pericardial effusion. Echocardiographic findings suggest a non hemodynamically significant pericardial effusion. +large left Pleural effusion. Trace tricuspid valve regurgitation. Tricuspid regurgitation velocities suggest a PAP of 14.9 mmHg + RAP. MEASUREMENTS (Male / Female) Normal Values 2D ECHO LV Diastolic Diameter PLAX 4.2 cm 4.2 - 5.9 / 3.9 - 5.3 cm LV Systolic Diameter PLAX 2.5 cm LV Fractional Shortening PLAX 39.5 % IVS Diastolic Thickness 0.7 cm 0.6 - 1.0 / 0.6 - 0.9 cm LVPW Diastolic Thickness 0.9 cm 0.6 - 1.0 / 0.6 - 0.9 cm RV Internal Dim ED PLAX 2.6 cm Aortic Root Diameter 2.5 cm LA Systolic Diameter LX 3.1 cm 3.0 - 4.0 / 2.7 - 3.8 cm DOPPLER Mitral E to A Ratio 1.1 TR Peak Velocity 193.0 cm/s TR Peak Gradient 14.9 mmHg FINDINGS Left Ventricle Normal left ventricular cavity size. Left ventricular ejection fraction is estimated at > 55 %. Right Ventricle Normal right ventricular size. Right Atrium Normal right atrial size. Left Atrium Normal left atrial size. Mitral Valve Mildly thickened mitral valve. Aortic Valve The aortic valve is trileaflet and has normal motion. Tricuspid Valve Morphologically normal tricuspid valve. Trace tricuspid valve regurgitation. Tricuspid regurgitation velocities suggest a PAP of 14.9 mmHg + RAP. Pulmonic Valve Morphologically normal pulmonic valve. Pericardium Trivial to small pericardial effusion.echocardiographic findings suggest a non hemodynamically significant pericardial effusion. +large left Pleural effusion. Aorta Normal size aortic root and proximal ascending aorta. Arie Fernandez MD (Electronically Signed) Final Date: 08 May 2017 13:43
[2017-05-08] MEDS: ALPRAZolam 0.25 MG TABLET PO PRN (19:58)
--- NOTE | 2017-05-08 20:44 | Cardiology Progress Note ---
Wilfredo Vidal Vanessa, RN, am scribing for, and in the presence of, Arie Fernandez MD 20:44. Assessment and Plan - Time spent with patient Time spent with patient: Greater than 30 minutes (1) Pericardial effusion Status: Acute Assessment and plan: 62-year-old WM with past medical history hypertension, chronic tobacco use, COPD , and recent diagnosis of lung cancer now status post left pneumonectomy 3 weeks ago. Postoperatively, he has developed increasing exertional dyspnea, orthopnea, and LE edema. CT chest with right pleural effusion and moderate pericardial effusion. April ASSESSMENT/PLAN: 1. PERICARDIAL EFFUSION- moderate pericardial effusion per CT chest. We will review further with echocardiogram. 2. ACUTE DYSPNEA- multifactorial due to COPD, lung CA s/p left pneumonectomy, and some mild volume overload with pleural effusion. Pulmonary following also. 3. HYPERTENSION- overall fairly well controlled. Continue as present. Adjust antihypertensives as medical condition evolves and indicates. 4. HYPONATREMIA- Na+ 127. Has been placed on fluid restriction. 5. LUNG CANCER - now s/p left pneumonectomy 3 weeks ago. Postoperative course initially fairly uneventful. 6. COPD- contributing factor of dyspnea. Continue current plan of care. Shortness of breath may be multifactorial Does have loss of some lung postop and some pleural effusions Has a pericardial effusion by CT but probably is not hemodynamically significant based on vital signs We'll check echo Doppler Diuresed gently Elevated head of bed Check albumin Continue optimizing patient of pulmonary treatment Could consider right thoracentesis which might help some of his symptoms Thank you for allowing me to participate in this patient's care. April ASSESSMENT/PLAN: 1. PERICARDIAL EFFUSION- moderate pericardial effusion per CT chest. We will review further with echocardiogram. 2. ACUTE DYSPNEA- multifactorial due to COPD, lung CA s/p left pneumonectomy, and some mild volume overload with pleural effusion. Pulmonary following also. Shortness of breath is improved today with IV diuresis. 3. HYPERTENSION-this remains fairly well controlled. Continue as present. Adjust antihypertensives as medical condition evolves and indicates. 4. HYPONATREMIA- Na+ improved to 132. Has responded well to fluid restriction. 5. LUNG CANCER - now s/p left pneumonectomy 3 weeks ago. Postoperative course initially fairly uneventful. 6. COPD- contributing factor of dyspnea. Continue current plan of care. Plan/recommendation/assessment The echo revealed normal LV function, a large left pleural effusion and trivial pericardial effusion It appears his shortness of breath is likely not cardiac related He might consider doing a therapeutic thoracentesis of 1 or above pleural cavities, if you believe would help. Current Visit: Yes (2) Acute dyspnea Status: Acute Assessment and plan: SEE PLAN OF CARE LISTED ABOVE. Current Visit: Yes (3) H/O pneumonectomy Status: Acute Assessment and plan: SEE PLAN OF CARE LISTED ABOVE. Current Visit: Yes (4) Lung cancer Status: Acute Assessment and plan: SEE PLAN OF CARE LISTED ABOVE. Current Visit: Yes (5) Smoker Status: Chronic Assessment and plan: SEE PLAN OF CARE LISTED ABOVE. Current Visit: No (6) Hyponatremia Status: Acute Assessment and plan: SEE PLAN OF CARE LISTED ABOVE. 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 Gardiner, 62 year old WM, with risk factors significant for: Hypertension, long-term tobacco use. Patient recently quit smoking, February 2017. He was last seen by cardiology for left-sided chest pain in July 16. Subsequent exercise stress testing with Dr. Riley was normal. Past medical history includes lupus, GERD, BPH, skin CA, asthma and COPD he was recently diagnosed with lung cancer and is now status post left pneumonectomy on April 14 in [place]. He has done relatively well postoperatively, but over the last couple week he has noticed increasing bilateral lower extremity edema with shortness of breath. He has had previous venous ultrasound of lower extremities which were negative for DVT finding. The symptoms have gotten progressively worse, and he developed orthopnea, nonproductive cough, and temp up to 100.4F. He was admitted to [place]'s telemetry unit on 05/06 after presenting to the ED for further evaluation of increasing shortness of breath. EKG with sinus tachycardia but no acute change. 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 Vitals have been stable. Cardiology asked to see for evaluation of pericardial effusion with dyspnea. April: Mr. Gardiner appears to be feeling somewhat better. Reports productive cough this morning some relief of chest congestion and shortness of breath. No chest pain. Diuresed well yesterday evening with IV Lasix, and lower extremity edema is improving also. Blood pressure stable with SBP 130-150 mmHg range. Sinus rhythm, mildly tachycardic with HR no greater than 105 bpm. Serial cardiac isoenzymes have remained normal. CRP elevated, 15.7. Elevated LFTs on admission have continued to trend upward this morning. Abdominal ultrasound pending. Exam (Progress Note) - Constitutional Vitals: Period Temp Pulse Resp BP Sys/Bey Pulse Ox Last 24 Hr 97 F-98.8 F 90-103 18-22 129-154/71-88 91-100 Exam: General: Present: Other (no acute distress; underweight) HEENT: Present: EOMI, Normocephaly Neck: Present: JVD/HJR - improved, No Bruit Cardiac: Present: Regular Rhythm, No Murmur, Tachycardia. Absent: Bradycardia Lungs: Present: Rales - Right, improving, Oxygen, No Wheezes, Other: crackles resolved. Neuro: Present: Grossly Intact. Absent: Numbness, Tingling, Weakness, Resting Tremor Abdomen: Present: Soft, Active Bowel Sounds, No Masses. Absent: Ascites, Tender , Firm, Distended Skin: Present: Other (warm, dry). Absent: Rash, Suspicious Lesions, Bruising Incision: Present: Incision Site (left chest wall incision site intact, appears to be healing appropriately) Musculoskeletal: Present: Normal Range of Motion Extremities: Present: No Clubbing, No Cyanosis, Normal Upper Extr. Pulses (3+ bilaterally), Normal Lower Extr. Pulses (2-3+ bilaterally), Edema (2+ pretibial ; scrotal edema ), Capillary Refill. Absent: Mottled Result/EKG - Labs CBC & BMP: 05/06/17 21:36 05/08/17 05:45 Lab Results: I have reviewed the past 24 hour labs Labs: Laboratory Results - last 24 hr 05/07/17 05/07/17 05/07/17 08:06 10:55 13:27 ESR Westergren Sodium Potassium Chloride Carbon Dioxide Anion Gap BUN Creatinine GFR Calculation BUN/Creatinine Ratio Glucose Serum Osmolality Calculated Osmolality Calcium Total Bilirubin Direct Bilirubin Indirect Bilirubin AST ALT Alkaline Phosphatase Total Creatine Kinase 97 88 91 CK-MB (CK-2) 3.3 3.3 3.1 Troponin I < 0.015 < 0.015 < 0.015 C-Reactive Protein Total Protein Albumin Urine Osmolality Ur Random Sodium 05/07/17 05/07/1705/07/17 16:30 16:30 17:37 ESR Westergren 37 H Sodium Potassium Chloride Carbon Dioxide Anion Gap BUN Creatinine GFR Calculation BUN/Creatinine Ratio Glucose Serum Osmolality Calculated Osmolality Calcium Total Bilirubin Direct Bilirubin Indirect Bilirubin AST ALT Alkaline Phosphatase Total Creatine Kinase 87 CK-MB (CK-2) 3.0 Troponin I < 0.015 C-Reactive Protein 15.70 H Total Protein Albumin Urine Osmolality Ur Random Sodium 05/07/17 05/07/17 05/07/17 Unknown Unknown Unknown ESR Westergren Sodium Potassium Chloride Carbon Dioxide Anion Gap BUN Creatinine GFR Calculation BUN/Creatinine Ratio Glucose Serum Osmolality 268 L Calculated Osmolality Calcium Total Bilirubin Direct Bilirubin Indirect Bilirubin AST ALT Alkaline Phosphatase Total Creatine Kinase CK-MB (CK-2) Troponin I C-Reactive Protein Total Protein Albumin Urine Osmolality 195 Ur Random Sodium 38.0 05/08/17 05/08/17 05:45 05:45 ESR Westergren Sodium 132 L Potassium 3.9 Chloride 95 L Carbon Dioxide 32 Anion Gap 8.9 BUN 9 Creatinine 0.50 L GFR Calculation 130 BUN/Creatinine Ratio 18.00 Glucose 136 H Serum Osmolality Calculated Osmolality 264.5 L Calcium 8.4 L Total Bilirubin 0.80 Direct Bilirubin 0.20 Indirect Bilirubin 0.6 AST 153 H ALT 206 H Alkaline Phosphatase 162 H Total Creatine Kinase CK-MB (CK-2) Troponin I C-Reactive Protein Total Protein 5.4 L Albumin 2.0 L Urine Osmolality Ur Random Sodium - Diagnostic Findings Procedure: Chest x-ray: image reviewed by me, report reviewed by me (05/08/17: Increase of pleural fluid, atelectasis of right lung.), Ultrasound: image reviewed by me, report reviewed by me - EKG EKG results: interpreted by me, no acute changes EKG shows: tachycardia (Sinus tachycardia with pulse rate no greater than 110 bpm) IJim Dale, MD, personally performed the services described in this documentation, ascribed by Jeane Villalobos RN in my presence, and it is both accurate and complete .
[2017-05-09] MEDS: DOCUSATE SODIUM 100 MG CAPSULE PO SCH ×3 (01:04→20:05)
[2017-05-09] MEDS: TAMSULOSIN 0.4 MG CAPSULE PO SCH ×3 (01:04→20:05)
[2017-05-09] MEDS: PANTOPRAZOLE 40 MG TABLET PO SCH ×5 (01:05→22:49)
[2017-05-09] MEDS: methylPREDNISolone SOD SUC 40 MG/1 ML VIAL IV SCH ×3 (01:25→18:20)
[2017-05-09] MEDS: ALPRAZolam 0.25 MG TABLET PO PRN ×3 (01:29→20:04)
[2017-05-09] MEDS: ALBUTEROL 2.5 MG/3 ML NEB RESP TX SCH ×4 (01:41→18:51)
[2017-05-09 04:24] LABS: Calcium 8.4 MG/DL (8.5-10.1); Magnesium 2.1 MG/DL (1.8-2.4); Osmolality,Calculated 267.4 MOS/KG (273-304); Potassium 3.6 MMOL/L (3.5-5.1)
--- NOTE | 2017-05-09 07:37 | Family Practice Progress Note ---
Family Practice - PN: Subj Interval history: Patient is complaining of increasing dyspnea this morning. He exhibits pursed lip breathing and feels like he needs to sit up. He denies any chest pain associated with this. Exam (Progress Note) - Constitutional Vitals: Period Temp Pulse Resp BP Sys/Bey Pulse Ox Last 24 Hr 97.6 F-98.8 F 93-107 16-20 120-148/68-80 92-100 Exam: Objective a well-developed white male who is dyspneic at rest. He is a bit anxious. Cardiovascular: Heart rates rapid without murmurs or gallops. Respiratory: Absent breath sounds on the left he has increasing expiratory wheezes on the right. Abdomen: Abdomen soft and nontender to palpation. Results - Labs CBC & BMP: 05/06/17 21:36 05/09/17 03:20 Lab Results: I have reviewed the past 24 hour labs Assessment and Plan (1) Acute dyspnea Status: Acute Assessment and plan: 05/07/2017: Bronchodilator therapy will be added. Pulmonary was consulted by the emergency room physician. 05/08/2017: Patient is improved this morning with diuresis. 05/09/2017: Patient has increasing dyspnea this morning with expiratory wheeze. Current Visit: Yes (2) Pericardial effusion Status: Acute Assessment and plan: 05/07/2017: Echocardiogram has been ordered. 05/08/2017: Echocardiogram is pending. 05/09/2017: Cardiology is seeing him for this Current Visit: Yes (3) Hyponatremia Status: Acute Assessment and plan: 05/07/2017: Patient is placed on fluid restrictions. Serum and urine osmolality and sodium have been ordered. 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 Patient has responded to fluid restriction. 05/09/2017: Sodium was stable with fluid restriction. Current Visit: Yes (4) H/O pneumonectomy Status: Acute Assessment and plan: 05/07/2017: I will ask Dr. Larkin to see the patient concerning his CT findings. 05/08/2017: Dr. Torres felt CV surgery consult is not necessary at this time. Current Visit: Yes
[2017-05-09 07:55] LABS: Alanine Aminotransferase 205 U/L (16-61); Albumin 2.2 G/DL (3.4-5.0); Alkaline Phosphatase 162 U/L (45-117); Aspartate Amino Transferase 76 U/L (0-37); Bilirubin,Indirect 0.2 MG/DL (0.0-1.0); Bilirubin,Total < 0.39 MG/DL (0.2-1.0); Total Protein 5.7 G/DL (6.4-8.3)
[2017-05-09] MEDS: IPRATROPIUM 500 MCG/2.5 ML NEB RESP TX SCH (08:05)
[2017-05-09] MEDS: METOPROLOL SUCCINATE XL 25 MG TABLET PO SCH (08:05)
[2017-05-09] MEDS: FUROSEMIDE 40 MG/4 ML VIAL IV SCH ×2 (08:09→16:36)
--- NOTE | 2017-05-09 09:09 | XRay Report ---
XR chest 1V portable Indication: Acute dyspnea. Chest one view: Comparison yesterday shows stable left pneumonectomy with hydropneumothorax. There is increasing reticular haziness to the right upper lobe and left right lung base when compared to the previous exam. Heart size remains indeterminate. Impression: Increasing infiltrate or edema right lung as described. PROCEDURE INTERPRETED AT [facility] DEPARTMENT OF RADIOLOGY Final Report Signed by: Ez Alanis M.D.
[2017-05-09] MEDS ORDERED: FUROSEMIDE 40 MG/4 ML VIAL IV ONE (09:18)
[2017-05-09] MEDS: LINACLOTIDE 145 MCG CAPSULE PO SCH (09:56)
[2017-05-09] MEDS: MORPHINE 2 MG/1 ML SYRINGE IV PRN ×2 (10:00→20:06)
[2017-05-09 10:55] LABS: ABG Base Excess 11.1 MMOL/L (-2.5-2.5); ABG HCO3 34.9 MMOL/L (20-26); ABG Oxygen Saturation 95.3 % (95-100); ABG PCO2 46.1 MM HG (35-48); ABG PH 7.499 (7.35-7.45); ABG PO2 74.8 MM HG (80-95); ABG TCO2 32.1 MMOL/L (23-27)
[2017-05-09 11:15] LABS: Basophils % 0.1 % (0.0-0.8); Hematocrit 27.4 VOL% (42.0-52.0); Hemoglobin 9.4 GM/DL (14.0-18.0); Immature Granulocytes % 1.1 %; Immature Granulocytes Absolute 0.24 #; Lymphocytes # 0.3 10*3/uL (1.4-4.0); Lymphocytes % 1.5 % (21.2-54.2); Mean Corpuscular HGB Conc 34.3 GM/DL (32-36); Mean Corpuscular Hemoglobin 31 PG (27-34); Mean Platelet Volume 10.9 FL (9.6-12.0); Monocytes % 4.7 % (1.7-12.7); Neutrophils # 20.6 10*3/uL (1.4-7.4); Neutrophils % 92.6 % (38.7-73.9); Platelet Count 317 T/CUMM (130-400); Red Blood Count 3.01 MC/CUMM (3.8-5.5); Red Cell Distribution Width 12.4 % (9.3-17.3); White Blood Count 22.2 T/CUMM (4-12)
[2017-05-09 12:21] LABS: Hypochromasia 1+; Lymphocytes 3 % (20-55); Segmented Neutrophils 93 % (50-85); Total Cells Counted 100
[2017-05-09 12:22] LABS: Microcytosis Slight
--- NOTE | 2017-05-09 14:39 | Cardiology Progress Note ---
Assessment and Plan (1) Pericardial effusion Status: Acute Assessment and plan: 62-year-old WM with past medical history hypertension, chronic tobacco use, COPD , and recent diagnosis of lung cancer now status post left pneumonectomy 3 weeks ago. Postoperatively, he has developed increasing exertional dyspnea, orthopnea, and LE edema. CT chest with right pleural effusion and moderate pericardial effusion. April ASSESSMENT/PLAN: 1. PERICARDIAL EFFUSION- moderate pericardial effusion per CT chest. We will review further with echocardiogram. 2. ACUTE DYSPNEA- multifactorial due to COPD, lung CA s/p left pneumonectomy, and some mild volume overload with pleural effusion. Pulmonary following also. 3. HYPERTENSION- overall fairly well controlled. Continue as present. Adjust antihypertensives as medical condition evolves and indicates. 4. HYPONATREMIA- Na+ 127. Has been placed on fluid restriction. 5. LUNG CANCER - now s/p left pneumonectomy 3 weeks ago. Postoperative course initially fairly uneventful. 6. COPD- contributing factor of dyspnea. Continue current plan of care. Shortness of breath may be multifactorial Does have loss of some lung postop and some pleural effusions Has a pericardial effusion by CT but probably is not hemodynamically significant based on vital signs We'll check echo Doppler Diuresed gently Elevated head of bed Check albumin Continue optimizing patient of pulmonary treatment Could consider right thoracentesis which might help some of his symptoms Thank you for allowing me to participate in this patient's care. April ASSESSMENT/PLAN: 1. PERICARDIAL EFFUSION- moderate pericardial effusion per CT chest. We will review further with echocardiogram. 2. ACUTE DYSPNEA- multifactorial due to COPD, lung CA s/p left pneumonectomy, and some mild volume overload with pleural effusion. Pulmonary following also. Shortness of breath is improved today with IV diuresis. 3. HYPERTENSION-this remains fairly well controlled. Continue as present. Adjust antihypertensives as medical condition evolves and indicates. 4. HYPONATREMIA- Na+ improved to 132. Has responded well to fluid restriction. 5. LUNG CANCER - now s/p left pneumonectomy 3 weeks ago. Postoperative course initially fairly uneventful. 6. COPD- contributing factor of dyspnea. Continue current plan of care. Plan/recommendation/assessment The echo revealed normal LV function, a large left pleural effusion and trivial pericardial effusion It appears his shortness of breath is likely not cardiac related He might consider doing a therapeutic thoracentesis of 1 or above pleural cavities, if you believe would help. 05/09/17 Trivial pericardial effusion but a large pleural effusion With low albumin, that could be part of why he sleeps out into his pleura, in addition to being postop inflammation Giving a trial of some steroids We will give a trial of spironolactone 6.25 mg p.o. now and twice daily and see if it helps pull some of the fluid out of the pleura and tissues Watch BMP while on this medication Watch blood pressure on the spironolactone Continue the Lasix with the spironolactone Current Visit: Yes (2) Acute dyspnea Status: Acute Assessment and plan: SEE PLAN OF CARE LISTED ABOVE. Current Visit: Yes (3) H/O pneumonectomy Status: Acute Assessment and plan: SEE PLAN OF CARE LISTED ABOVE. Current Visit: Yes (4) Lung cancer Status: Acute Assessment and plan: SEE PLAN OF CARE LISTED ABOVE. Current Visit: Yes (5) Smoker Status: Chronic Assessment and plan: SEE PLAN OF CARE LISTED ABOVE. Current Visit: No (6) Hyponatremia Status: Acute Assessment and plan: SEE PLAN OF CARE LISTED ABOVE. Current Visit: Yes (7) Bilateral pleural effusion Status: Acute Current Visit: Yes Cardiology - PN: Subj Interval history: Still coughing some. Some shortness of breath. Exam (Progress Note) - Constitutional Vitals: Period Temp Pulse Resp BP Sys/Bey Pulse Ox Last 24 Hr 98 F-98.8 F 89-105 18-23 112-148/56-80 90-99 Exam: General: Present: Other (no acute distress; underweight) HEENT: Present: EOMI, Normocephaly Neck: Present: JVD/HJR - improved, No Bruit Cardiac: Present: Regular Rhythm, No Murmur, Tachycardia. Absent: Bradycardia Lungs: Present: Rales - Right, improving, Oxygen, No Wheezes, Other: crackles resolved. Neuro: Present: Grossly Intact. Absent: Numbness, Tingling, Weakness, Resting Tremor Abdomen: Present: Soft, Active Bowel Sounds, No Masses. Absent: Ascites, Tender , Firm, Distended Skin: Present: Other (warm, dry). Absent: Rash, Suspicious Lesions, Bruising Incision: Present: Incision Site (left chest wall incision site intact, appears to be healing appropriately) Musculoskeletal: Present: Normal Range of Motion Extremities: Present: No Clubbing, No Cyanosis, Normal Upper Extr. Pulses (3+ bilaterally), Normal Lower Extr. Pulses (2-3+ bilaterally), Edema (2+ pretibial ; scrotal edema ), Capillary Refill. Absent: Mottled Result/EKG - Labs CBC & BMP: 05/09/17 10:54 05/09/17 03:20 Lab Results: I have reviewed the past 24 hour labs Labs: Laboratory Results - last 24 hr 05/09/17 05/09/17 05/09/17 03:20 06:49 09:18 WBC RBC Hgb Hct MCV MCH MCHC RDW Plt Count MPV Neut % (Auto) Lymph % (Auto) [place] % (Auto) Eos % (Auto) Baso % (Auto) Neut # (Auto) Lymph # (Auto) [place] # (Auto) Eos # (Auto) Baso # (Auto) Total Counted Immature Gran % Nucleated RBC % Immature Gran # Segmented Neutrophils Lymphocytes Monocytes Nucleated RBCs # Immature Plt Fraction Hypochromasia Microcytosis Morphology Comment ABG pH 7.499 H ABG pCO2 46.1 ABG pO2 74.8 L ABG HCO3 34.9 H ABG Total CO2 32.1 H ABG O2 Saturation 95.3 ABG Base Excess 11.1 H Sodium 133 L Potassium 3.6 Chloride 92 L Carbon Dioxide 34 H Anion Gap 10.6 BUN 13 Creatinine 0.50 L GFR Calculation 130 BUN/Creatinine Ratio 26.00 H Glucose 141 H Calculated Osmolality 267.4 L Calcium 8.4 L Magnesium 2.1 Total Bilirubin < 0.39 Direct Bilirubin 0.20 Indirect Bilirubin 0.2 AST 76 H ALT 205 H Alkaline Phosphatase 162 H B-Natriuretic Peptide Total Protein 5.7 L Albumin 2.2 L 05/09/17 05/09/17 10:54 10:54 WBC 22.2 H D RBC 3.01 L Hgb 9.4 L Hct 27.4 L MCV 91.0 MCH 31 MCHC 34.3 RDW 12.4 Plt Count 317 MPV 10.9 Neut % (Auto) 92.6 H Lymph % (Auto) 1.5 L [place] % (Auto) 4.7 Eos % (Auto) 0.0 Baso % (Auto) 0.1 Neut # (Auto) 20.6 H Lymph # (Auto) 0.3 L [place] # (Auto) 1.0 H Eos # (Auto) 0.0 Baso # (Auto) 0.0 Total Counted 100 Immature Gran % 1.1 Nucleated RBC % 0.0 Immature Gran # 0.24 Segmented Neutrophils 93 H Lymphocytes 3 L Monocytes 4 Nucleated RBCs # 0.00 Immature Plt Fraction 0.0 Hypochromasia 1+ Microcytosis Slight Morphology Comment ABG pH ABG pCO2 ABG pO2 ABG HCO3 ABG Total CO2 ABG O2 Saturation ABG Base Excess Sodium Potassium Chloride Carbon Dioxide Anion Gap BUN Creatinine GFR Calculation BUN/Creatinine Ratio Glucose Calculated Osmolality Calcium Magnesium Total Bilirubin Direct Bilirubin Indirect Bilirubin AST ALT Alkaline Phosphatase B-Natriuretic Peptide 206 H Total Protein Albumin - Diagnostic Findings Procedure: Chest x-ray: report reviewed by me - EKG EKG results: interpreted by me
--- NOTE | 2017-05-09 15:05 | Pulmonology Progress Note ---
Pulmonary - PN: Subj Interval history: Patient seen and examined today, reports worsening shortness of breath today. Breathing treatments helping some. Does have cough productive of scant clear fluid Exam (Progress Note) - Constitutional Vitals: Period Temp Pulse Resp BP Sys/Bey Pulse Ox Last 24 Hr 98 F-98.8 F 89-105 18-23 112-148/56-80 90-99 General appearance: no acute distress Exam: appears uncomfortable but not toxic - Head Head exam: Present: normal inspection - Respiratory Respiratory exam: Present: other (hyperresonnance over left chest, as expected, with referred breath sounds, some rhonchi, no wheezing) - Cardiovascular Cardiovascular exam: Present: tachycardia Results - Labs CBC & BMP: 05/09/17 10:54 05/09/17 03:20 Lab Results: I have reviewed the past 24 hour labs - Diagnostic Findings Procedure: Chest x-ray: image reviewed by me (reviewed image and report), CT - chest: image reviewed by me (reviewed image and report, some ground glass opacities in RUL) Assessment and Plan (1) Acute dyspnea Status: Acute Assessment and plan: Patient s/p left pneumonectomy 3 weeks ago, now with acute dyspnea. He is on steroids and breathing treatments which should cover any componant of COPD. His right pleural effusion is quite small. I am concerned he may have a pneumonia in the RUL. His leukocytosis may just be from steroids, but given his symptoms and the fact that he only has one lung now, will empirically treat with broad spectrum antibiotics. Not producing enough sputum to sample. Will treat embirically for now. Continue other meds. If dyspnea doesn't improve, can consider US to eval for possible thora of the right (although again, I have low suspicion this is the cause). Left lung should continue to fill, there is nothing that needs to be done about this at this time Current Visit: Yes
[2017-05-09] MEDS: SPIRONOLACTONE 25 MG TABLET PO SCH ×2 (16:34→20:04)
[2017-05-09] MEDS: PIPERACILLIN/TAZOBACTAM 3,375 MG in SODIUM CHLORIDE 0.9% 100 ML IV SCH (16:34)
[2017-05-09] MEDS: VANCOMYCIN INJ 1,000 MG in SODIUM CHLORIDE 0.9% 250 ML IV SCH (22:48)
[2017-05-10] MEDS: ALBUTEROL 2.5 MG/3 ML NEB RESP TX SCH ×5 (00:40→19:20)
[2017-05-10] MEDS: methylPREDNISolone SOD SUC 40 MG/1 ML VIAL IV SCH ×3 (00:44→17:04)
[2017-05-10] MEDS: PIPERACILLIN/TAZOBACTAM 3,375 MG in SODIUM CHLORIDE 0.9% 100 ML IV SCH ×3 (00:51→17:05)
[2017-05-10] MEDS: ALPRAZolam 0.25 MG TABLET PO PRN ×2 (04:09→19:39)
[2017-05-10] MEDS: VANCOMYCIN INJ 1,000 MG in SODIUM CHLORIDE 0.9% 250 ML IV SCH ×3 (06:19→22:20)
[2017-05-10 06:43] LABS: Basophils % 0.1 % (0.0-0.8); Hematocrit 27.5 VOL% (42.0-52.0); Hemoglobin 9.2 GM/DL (14.0-18.0); Immature Granulocytes % 0.9 %; Immature Granulocytes Absolute 0.15 #; Lymphocytes # 0.4 10*3/uL (1.4-4.0); Lymphocytes % 2.5 % (21.2-54.2); Mean Corpuscular HGB Conc 33.5 GM/DL (32-36); Mean Corpuscular Hemoglobin 31 PG (27-34); Mean Corpuscular Volume 92.3 FL (87-102); Monocytes # 0.5 10*3/uL (0.11-0.8); Monocytes % 3.1 % (1.7-12.7); Neutrophils # 15.6 10*3/uL (1.4-7.4); Neutrophils % 93.4 % (38.7-73.9); Platelet Count 351 T/CUMM (130-400); Red Blood Count 2.98 MC/CUMM (3.8-5.5); Red Cell Distribution Width 12.2 % (9.3-17.3); White Blood Count 16.6 T/CUMM (4-12)
[2017-05-10] MEDS: ALBUTEROL/IPRATROPIUM 3 ML NEB RESP TX SCH (06:55)
[2017-05-10 07:10] LABS: Lymphocytes 2 % (20-55); Segmented Neutrophils 96 % (50-85); Total Cells Counted 100
[2017-05-10 07:11] LABS: Hypochromasia 1+; Microcytosis Slight
[2017-05-10 07:12] LABS: Platelet Estimate Normal
[2017-05-10 07:22] LABS: Alanine Aminotransferase 181 U/L (16-61); Albumin 2.2 G/DL (3.4-5.0); Alkaline Phosphatase 144 U/L (45-117); Aspartate Amino Transferase 48 U/L (0-37); Bilirubin,Indirect 0.3 MG/DL (0.0-1.0); Bilirubin,Total < 0.39 MG/DL (0.2-1.0); Blood Urea Nitrogen 15 MG/DL (7-18); Calcium 8.5 MG/DL (8.5-10.1); Glucose 123 MG/DL (74-106); Magnesium 2.2 MG/DL (1.8-2.4); Osmolality,Calculated 271.1 MOS/KG (273-304); Potassium 3.5 MMOL/L (3.5-5.1); Sodium 135 MMOL/L (136-145); Total Protein 5.6 G/DL (6.4-8.3)
--- NOTE | 2017-05-10 07:46 | Family Practice Progress Note ---
Family Practice - PN: Subj Interval history: Patient states he is doing a bit better this morning but he still dyspneic. He has not had any fever or chills and states is not having any right-sided chest pain. His echocardiogram yesterday showed a trivial pericardial effusion that was mentioned on his CT. This is certainly not contributing to his dyspnea. His chest x-ray yesterday showed deterioration and Dr. Orozco recommended IV antibiotics. Cultures are pending. Exam (Progress Note) - Constitutional Vitals: Period Temp Pulse Resp BP Sys/Bey Pulse Ox Last 24 Hr 97.7 F-98.8 F 84-106 18-23 112-144/56-90 90-99 Exam: Objective a well-developed white male who is dyspneic at rest. He is certainly improved from this time yesterday morning. Patient's serum sodium was 135, his white blood count is down to 16,600 and his hematocrit is stable. Cardiovascular: Heart rates rapid without murmurs or gallops. Respiratory: Absent breath sounds on the left he has improved expiratory wheezes on the right. Abdomen: Abdomen soft and nontender to palpation. Results - Labs CBC & BMP: 05/10/17 06:37 05/10/17 06:37 Lab Results: I have reviewed the past 24 hour labs Assessment and Plan (1) Acute dyspnea Status: Acute Assessment and plan: 05/07/2017: Bronchodilator therapy will be added. Pulmonary was consulted by the emergency room physician. 05/08/2017: Patient is improved this morning with diuresis. 05/09/2017: Patient has increasing dyspnea this morning with expiratory wheeze. 05/10/2017: Patient's dyspnea has improved this morning. He is being treated for pneumonia. Repeat chest x-ray will be ordered for the a.m. Current Visit: Yes (2) Pericardial effusion Status: Acute Assessment and plan: 05/07/2017: Echocardiogram has been ordered. 05/08/2017: Echocardiogram is pending. 05/09/2017: Cardiology is seeing him for this 05/10/2017: He has pericardial effusion appears trivial on echocardiogram. Current Visit: Yes (3) Hyponatremia Status: Acute Assessment and plan: 05/07/2017: Patient is placed on fluid restrictions. Serum and urine osmolality and sodium have been ordered. 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 Patient has responded to fluid restriction. 05/09/2017: Sodium was stable with fluid restriction. 05/10/2017: Serum sodium was 135 this morning. Current Visit: Yes (4) H/O pneumonectomy Status: Suspected Assessment and plan: 05/07/2017: I will ask Dr. Larkin to see the patient concerning his CT findings. 05/08/2017: Dr. Torres felt CV surgery consult is not necessary at this time. Current Visit: Yes
[2017-05-10] MEDS: IPRATROPIUM 500 MCG/2.5 ML NEB RESP TX SCH (07:51)
[2017-05-10] MEDS: MORPHINE 2 MG/1 ML SYRINGE IV PRN ×2 (08:51→19:50)
[2017-05-10] MEDS: METOPROLOL SUCCINATE XL 25 MG TABLET PO SCH (08:51)
[2017-05-10] MEDS: FUROSEMIDE 40 MG/4 ML VIAL IV SCH ×2 (08:52→17:00)
[2017-05-10] MEDS: TAMSULOSIN 0.4 MG CAPSULE PO SCH ×3 (08:52→22:35)
[2017-05-10] MEDS: PANTOPRAZOLE 40 MG TABLET PO SCH ×5 (08:52→22:23)
[2017-05-10] MEDS: DOCUSATE SODIUM 100 MG CAPSULE PO SCH ×3 (08:52→22:19)
--- NOTE | 2017-05-10 09:02 | Pulmonology Progress Note ---
Pulmonary - PN: Subj Interval history: PAtient s/p pneumonectomy, admitted with acute shortness of breath. Started on Vanc and Zosyn yesterday, leukocytosis is improved today, patient not clinically worse. Still with dyspnea Exam (Progress Note) - Constitutional Vitals: Period Temp Pulse Resp BP Sys/Bey Pulse Ox Last 24 Hr 97.4 F-98.8 F 79-106 18-22 112-145/56-90 92-99 General appearance: no acute distress - Head Head exam: Present: normal inspection - Respiratory Respiratory exam: Absent: accessory muscle use, stridor, wheezes - Cardiovascular Cardiovascular exam: Present: regular rate and rhythm Results - Labs CBC & BMP: 05/10/17 06:37 05/10/17 06:37 Lab Results: I have reviewed the past 24 hour labs Assessment and Plan (1) Acute dyspnea Status: Acute Assessment and plan: Patient s/p left pneumonectomy 3 weeks ago, now with acute dyspnea. Clinically stable on broad spectrum antibiotics. Cultures pending, can tailor antibxs if we get a positive species. Otherwise would continue for now. Current Visit: Yes
[2017-05-10] MEDS: SPIRONOLACTONE 25 MG TABLET PO SCH ×3 (09:07→22:19)
[2017-05-10] MEDS: LINACLOTIDE 145 MCG CAPSULE PO SCH (09:09)
--- NOTE | 2017-05-10 21:05 | Cardiology Progress Note ---
Assessment and Plan (1) Pericardial effusion Status: Acute Assessment and plan: 62-year-old WM with past medical history hypertension, chronic tobacco use, COPD , and recent diagnosis of lung cancer now status post left pneumonectomy 3 weeks ago. Postoperatively, he has developed increasing exertional dyspnea, orthopnea, and LE edema. CT chest with right pleural effusion and moderate pericardial effusion. April ASSESSMENT/PLAN: 1. PERICARDIAL EFFUSION- moderate pericardial effusion per CT chest. We will review further with echocardiogram. 2. ACUTE DYSPNEA- multifactorial due to COPD, lung CA s/p left pneumonectomy, and some mild volume overload with pleural effusion. Pulmonary following also. 3. HYPERTENSION- overall fairly well controlled. Continue as present. Adjust antihypertensives as medical condition evolves and indicates. 4. HYPONATREMIA- Na+ 127. Has been placed on fluid restriction. 5. LUNG CANCER - now s/p left pneumonectomy 3 weeks ago. Postoperative course initially fairly uneventful. 6. COPD- contributing factor of dyspnea. Continue current plan of care. Shortness of breath may be multifactorial Does have loss of some lung postop and some pleural effusions Has a pericardial effusion by CT but probably is not hemodynamically significant based on vital signs We'll check echo Doppler Diuresed gently Elevated head of bed Check albumin Continue optimizing patient of pulmonary treatment Could consider right thoracentesis which might help some of his symptoms Thank you for allowing me to participate in this patient's care. April ASSESSMENT/PLAN: 1. PERICARDIAL EFFUSION- moderate pericardial effusion per CT chest. We will review further with echocardiogram. 2. ACUTE DYSPNEA- multifactorial due to COPD, lung CA s/p left pneumonectomy, and some mild volume overload with pleural effusion. Pulmonary following also. Shortness of breath is improved today with IV diuresis. 3. HYPERTENSION-this remains fairly well controlled. Continue as present. Adjust antihypertensives as medical condition evolves and indicates. 4. HYPONATREMIA- Na+ improved to 132. Has responded well to fluid restriction. 5. LUNG CANCER - now s/p left pneumonectomy 3 weeks ago. Postoperative course initially fairly uneventful. 6. COPD- contributing factor of dyspnea. Continue current plan of care. Plan/recommendation/assessment The echo revealed normal LV function, a large left pleural effusion and trivial pericardial effusion It appears his shortness of breath is likely not cardiac related He might consider doing a therapeutic thoracentesis of 1 or above pleural cavities, if you believe would help. 05/09/17 Trivial pericardial effusion but a large pleural effusion With low albumin, that could be part of why he sleeps out into his pleura, in addition to being postop inflammation Giving a trial of some steroids We will give a trial of spironolactone 6.25 mg p.o. now and twice daily and see if it helps pull some of the fluid out of the pleura and tissues Watch BMP while on this medication Watch blood pressure on the spironolactone Continue the Lasix with the spironolactone 05/10/17 Shortness of breath is about the same No significant weight loss Electrolytes, BUN, creatinine were checked-on spironolactone-no significant change Continue the spironolactone--watch closely for problems on it Get up and out of bed and ambulate. Therapeutic thoracentesis might be an option if pulmonary thinks it might be useful Current Visit: Yes (2) Acute dyspnea Status: Acute Assessment and plan: SEE PLAN OF CARE LISTED ABOVE. Current Visit: Yes (3) H/O pneumonectomy Status: Suspected Assessment and plan: SEE PLAN OF CARE LISTED ABOVE. Current Visit: Yes (4) Lung cancer Status: Acute Assessment and plan: SEE PLAN OF CARE LISTED ABOVE. Current Visit: Yes (5) Smoker Status: Chronic Assessment and plan: SEE PLAN OF CARE LISTED ABOVE. Current Visit: No (6) Hyponatremia Status: Acute Assessment and plan: SEE PLAN OF CARE LISTED ABOVE. Current Visit: Yes (7) Bilateral pleural effusion Status: Acute Current Visit: Yes Cardiology - PN: Subj Interval history: no chest pain. Shortness breath is about the same. Exam (Progress Note) - Constitutional Vitals: Period Temp Pulse Resp BP Sys/Bey Pulse Ox Last 24 Hr 97.4 F-98.8 F 79-106 17-20 127-145/60-90 92-99 Exam: General: Present: Other (no acute distress; underweight) HEENT: Present: EOMI, Normocephaly Neck: Present: JVD/HJR - improved, No Bruit Cardiac: Present: Regular Rhythm, No Murmur, Tachycardia. Absent: Bradycardia Lungs: Present: Rales - Right, improving, Oxygen, No Wheezes, Other: crackles resolved. Neuro: Present: Grossly Intact. Absent: Numbness, Tingling, Weakness, Resting Tremor Abdomen: Present: Soft, Active Bowel Sounds, No Masses. Absent: Ascites, Tender , Firm, Distended Skin: Present: Other (warm, dry). Absent: Rash, Suspicious Lesions, Bruising Incision: Present: Incision Site (left chest wall incision site intact, appears to be healing appropriately) Musculoskeletal: Present: Normal Range of Motion Extremities: Present: No Clubbing, No Cyanosis, Normal Upper Extr. Pulses (3+ bilaterally), Normal Lower Extr. Pulses (2-3+ bilaterally), Edema (2+ pretibial ; scrotal edema ), Capillary Refill. Absent: Mottled Result/EKG - Labs CBC & BMP: 05/10/17 06:37 05/10/17 06:37 Labs: Laboratory Results - last 24 hr 05/10/17 05/10/17 06:37 06:37 WBC 16.6 H RBC 2.98 L Hgb 9.2 L Hct 27.5 L MCV 92.3 MCH 31 MCHC 33.5 RDW 12.2 Plt Count 351 MPV 10.0 Neut % (Auto) 93.4 H Lymph % (Auto) 2.5 L [place] % (Auto) 3.1 Eos % (Auto) 0.0 Baso % (Auto) 0.1 Neut # (Auto) 15.6 H Lymph # (Auto) 0.4 L [place] # (Auto) 0.5 Eos # (Auto) 0.0 Baso # (Auto) 0.0 Total Counted 100 Immature Gran % 0.9 Nucleated RBC % 0.0 Immature Gran # 0.15 Segmented Neutrophils 96 H Lymphocytes 2 L Monocytes 2 Nucleated RBCs # 0.00 Platelet Estimate Normal Immature Plt Fraction 0.0 Hypochromasia 1+ Microcytosis Slight Morphology Comment Sodium 135 L Potassium 3.5 Chloride 93 L Carbon Dioxide 37 H Anion Gap 8.5 BUN 15 Creatinine 0.70 GFR Calculation 113 BUN/Creatinine Ratio 21.00 H Glucose 123 H Calculated Osmolality 271.1 L Calcium 8.5 Magnesium 2.2 Total Bilirubin < 0.39 Direct Bilirubin 0.10 Indirect Bilirubin 0.3 AST 48 H ALT 181 H Alkaline Phosphatase 144 H Total Protein 5.6 L Albumin 2.2 L
[2017-05-11] MEDS: ALBUTEROL 2.5 MG/3 ML NEB RESP TX SCH ×4 (00:29→19:58)
[2017-05-11] MEDS: MORPHINE 2 MG/1 ML SYRINGE IV PRN (00:42)
[2017-05-11] MEDS: methylPREDNISolone SOD SUC 40 MG/1 ML VIAL IV SCH ×2 (00:47→09:10)
[2017-05-11] MEDS: PIPERACILLIN/TAZOBACTAM 3,375 MG in SODIUM CHLORIDE 0.9% 100 ML IV SCH ×3 (00:55→17:39)
[2017-05-11] MEDS: VANCOMYCIN INJ 1,000 MG in SODIUM CHLORIDE 0.9% 250 ML IV SCH ×3 (05:00→22:18)
--- NOTE | 2017-05-11 07:04 | Family Practice Progress Note ---
Family Practice - PN: Subj Interval history: Patient states he is actually feeling a little bit better this morning but is starting to wheeze a little more and it is time for his next albuterol neb. He has not had any further fever and is not had chills. He is still very debilitated. His swelling of his lower extremities is much improved. Sodium yesterday was 135. I am going to repeat chest x-ray on him today. Exam (Progress Note) - Constitutional Vitals: Period Temp Pulse Resp BP Sys/Bey Pulse Ox Last 24 Hr 97.4 F-99.6 F 79-102 17-24 121-147/60-83 93-100 Exam: Objective a well-developed white male who is dyspneic at rest. Patient states he is a bit improved. I am going to repeat his chest x-ray this morning. Cardiovascular: Heart rates rapid without murmurs or gallops. Respiratory: Absent breath sounds on the left he has improved expiratory wheezes on the right. Abdomen: Abdomen soft and nontender to palpation. Results - Labs CBC & BMP: 05/10/17 06:37 05/10/17 06:37 Lab Results: I have reviewed the past 24 hour labs Assessment and Plan (1) Acute dyspnea Status: Acute Assessment and plan: 05/07/2017: Bronchodilator therapy will be added. Pulmonary was consulted by the emergency room physician. 05/08/2017: Patient is improved this morning with diuresis. 05/09/2017: Patient has increasing dyspnea this morning with expiratory wheeze. 05/10/2017: Patient's dyspnea has improved this morning. He is being treated for pneumonia. Repeat chest x-ray will be ordered for the a.m. 05/11/2017: Patient is improving slowly Current Visit: Yes (2) Pericardial effusion Status: Suspected Assessment and plan: 05/07/2017: Echocardiogram has been ordered. 05/08/2017: Echocardiogram is pending. 05/09/2017: Cardiology is seeing him for this 05/10/2017: He has pericardial effusion appears trivial on echocardiogram. Current Visit: Yes (3) Hyponatremia Status: Acute Assessment and plan: 05/07/2017: Patient is placed on fluid restrictions. Serum and urine osmolality and sodium have been ordered. 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 Patient has responded to fluid restriction. 05/09/2017: Sodium was stable with fluid restriction. 05/10/2017: Serum sodium was 135 this morning. 05/11/2017: We will repeat BMP in a.m. Current Visit: Yes (4) H/O pneumonectomy Status: Suspected Assessment and plan: 05/07/2017: I will ask Dr. Larkin to see the patient concerning his CT findings. 05/08/2017: Dr. Torres felt CV surgery consult is not necessary at this time. Current Visit: Yes
--- NOTE | 2017-05-11 07:43 | XRay Report ---
2 view chest. Indication: Dyspnea. Shortness of breath. Comparison: May 09, 2017. There has been a left pneumonectomy. There is hydropneumothorax on the left, stable compared to the previous exam. The right lung is hyperexpanded. The right lung contains both fibrotic change and superimposed pneumonia, most pronounced in the right upper lobe and medial aspects of the right lower lobe. These findings show interval improvement. The osseous structures are stable. Impression: Improvement in the appearance of the infiltrates of the right lung. PROCEDURE INTERPRETED AT [facility] DEPARTMENT OF RADIOLOGY Final Report Signed by: Dr. Dedra Donato
[2017-05-11] MEDS: IPRATROPIUM 500 MCG/2.5 ML NEB RESP TX SCH (07:49)
[2017-05-11] MEDS: ALPRAZolam 0.25 MG TABLET PO PRN ×2 (09:06→21:32)
[2017-05-11] MEDS: METOPROLOL SUCCINATE XL 25 MG TABLET PO SCH (09:06)
[2017-05-11] MEDS: SPIRONOLACTONE 25 MG TABLET PO SCH ×2 (09:07→21:31)
[2017-05-11] MEDS: PANTOPRAZOLE 40 MG TABLET PO SCH ×3 (09:08→21:32)
[2017-05-11] MEDS: DOCUSATE SODIUM 100 MG CAPSULE PO SCH ×2 (09:08→21:32)
[2017-05-11] MEDS: TAMSULOSIN 0.4 MG CAPSULE PO SCH ×2 (09:08→21:32)
[2017-05-11] MEDS: FUROSEMIDE 40 MG/4 ML VIAL IV SCH ×2 (09:09→17:10)
[2017-05-11] MEDS: LINACLOTIDE 145 MCG CAPSULE PO SCH (09:09)
--- NOTE | 2017-05-11 16:38 | Pulmonology Progress Note ---
Pulmonary - PN: Subj Interval history: The patient is a 62-year-old white man that has a left lung cancer and he underwent a left pneumonectomy about 3 weeks ago. He was doing fairly well to the last few days when he came in short of breath. He has been coughing and having a little bit of chest congestion. He did have some swelling and peripheral edema. He did diurese fairly well. Over the weekend he was started on IV antibiotics. His sputum is fairly clear. He has not had any definite fever. He did not seem to diurese fairly well and is breathing better. He is sitting up eating and feels okay at present. Exam (Progress Note) - Constitutional Vitals: Period Temp Pulse Resp BP Sys/Bey Pulse Ox Last 24 Hr 97.6 F-99.6 F 79-96 18-24 121-147/65-83 97-100 Exam: General appearance: mild distress (The patient is a thin middle-aged man that looks comfortable sitting up and is in no distress.) - Head Head exam: Present: normal inspection, normocephalic - Eye Eye exam: Present: EOMI. Absent: scleral icterus Pupils: Present: SANTO - ENT ENT exam: Present: normal exam - Neck Neck exam: Present: normal inspection, other (He does have increased JVD). Absent: lymphadenopathy, thyromegaly - Respiratory Respiratory exam: Present: His right lung has good air movement sounds much clearer today. - Cardiovascular Cardiovascular exam: Present: JVD, regular rate and rhythm. Absent: gallop, rubs, systolic murmur - GI/Abdominal GI/Abdominal exam: Present: normal bowel sounds, soft. Absent: organomegaly, tenderness - Extremities Exam Extremities exam: Present: His leg swelling is much better. - Neurological Exam Neurological exam: Present: alert, oriented X3, CN II-XII intact - Psychiatric Psychiatric exam: Present: anxious - Skin Skin exam: Present: warm, dry Results - Labs CBC & BMP: 05/10/17 06:37 05/10/17 06:37 - Diagnostic Findings Procedure: Chest x-ray: image reviewed by me, report reviewed by me (The right lung looks better with less infiltrates.) Assessment and Plan (1) Lung cancer Status: Acute Assessment and plan: The patient has been found to have a left lung cancer and had a left pneumonectomy about 3 weeks ago. He did fairly well with surgery early on. Overall he is looking a little better. Current Visit: Yes (2) Pleural effusion Status: Acute Assessment and plan: He has diuresed well and the right pleural effusion has resolved. Current Visit: Yes (3) SOB (shortness of breath) Status: Acute Assessment and plan: His shortness of breath came on fairly suddenly and suggests some mild overload. He does have some COPD also. He seems to be responding better and his shortness of breath is better. Current Visit: Yes (4) Pericardial effusion Status: Suspected Assessment and plan: He has only a little pericardial effusion on echo. Current Visit: Yes (5) Hyponatremia Status: Acute Assessment and plan: His sodium is up to 135. Current Visit: Yes (6) H/O pneumonectomy Status: Suspected Assessment and plan: He has had a left pneumonectomy and did fairly well with the surgery. The left chest is not completely filled with fluid yet but is getting there. Current Visit: Yes (7) Abnormal liver function test Status: Acute Assessment and plan: He may have some passive congestion and his liver tests are getting better. Current Visit: Yes
--- NOTE | 2017-05-11 17:02 | Cardiology Progress Note ---
Wilfredo Vidal Vanessa RN, am scribing for, and in the presence of, DelmisLaoDO [email or web address] 17 :02. Assessment and Plan - Time spent with patient Time spent with patient: Greater than 30 minutes Time spent discussing smoking cessation with patient: 3 to 10 minutes (1) Acute dyspnea Status: Acute Assessment and plan: Multifactorial. Patient is now being treated for pneumonia. Defer primary management to pulmonary. Current Visit: Yes (2) Pericardial effusion Status: Suspected Assessment and plan: Chest CT on admission suggestive of moderate pericardial effusion. Follow-up echocardiogram demonstrates trivial pericardial effusion. Patient has been hemodynamically stable. Current Visit: Yes (3) Leukocytosis Status: Acute Assessment and plan: Febrile over the weekend with white blood cell count now improving. Chest xray suspicious for right upper lobe pneumonia. Antibiotics have been started. Culture pending. Current Visit: Yes (4) Pleural effusion Status: Acute Assessment and plan: Patient has been diuresed and symptoms have improved. He has not required thoracentesis. Current Visit: Yes (5) H/O pneumonectomy Status: Suspected Assessment and plan: Status post left pneumonectomy on April 14. He is being followed per pulmonary also. Current Visit: Yes (6) Lung cancer Status: Acute Assessment and plan: Patient is now status post left pneumonectomy. Current Visit: Yes (7) Smoker Status: Chronic Assessment and plan: Patient has recently quit smoking in February 2017. Reiterated importance and merits of complete tobacco cessation. Current Visit: No (8) Hyponatremia Status: Acute Assessment and plan: Improved since admission with fluid restriction, and this morning sodium level is 135. Current Visit: Yes Cardiology - PN: Subj Interval history: DAY CARE SUPERVISOR: DR. RILEY (JUNE 2016) SUMMARY: Mr. Gardiner, 62 year old WM, with risk factors significant for: Hypertension, long-term tobacco use. Patient recently quit smoking, February 2017. He was last seen by cardiology for left-sided chest pain in July 16. Subsequent exercise stress testing with Dr. Riley was normal. Past medical history includes lupus, GERD, BPH, skin CA, asthma and COPD he was recently diagnosed with lung cancer and is now status post left pneumonectomy on April 14 in [place]. He has done relatively well postoperatively, but over the last couple week he has noticed increasing bilateral lower extremity edema with shortness of breath. He has had previous venous ultrasound of lower extremities which were negative for DVT finding. The symptoms have gotten progressively worse, and he developed orthopnea, nonproductive cough, and temp up to 100.4F. He was admitted to [place] [facility]'s telemetry unit on 05/06 after presenting to the ED for further evaluation of increasing shortness of breath. EKG with sinus tachycardia but no acute change. 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 Follow up echocardiogram on 05/07 with trivial effusion. Hemodynamics have been stable. Cardiology asked to see for evaluation of pericardial effusion with dyspnea. April: Mr. Gardiner is sitting up in chair this morning. Overall appears comfortable, but he is still having some dyspnea at rest and requiring 4L oxygen via nasal cannula. No right sided chest pain. Reports he is having some anxiety at the idea of being short of breath. Lower extremity edema much improved and is minimal. SBP 120-140 mmHg range. Sinus rhythm with mild tachycardia at times, heart rate no greater than 100 bpm, no ectopy or dysrhythmia. He has been increasing his activity some but says he is still pretty easily fatigued. Reports moderate amount urine output with diuresis. Labs reviewed. WBC 16,600 ( 22,200 previously). Hyponatremia improved, 135. LFTs remain slightly elevated ( AST 48, ALT 181) but have trended down since admit. Renal function stable with creatinine 0.7. This is a 62-year-old patient of Dr. lancaster is seen in the remote past. 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 There was no significant effusion seen by transthoracic echo. He is now developed a leukocytosis and a low-grade temp. From a cardiovascular standpoint nothing further to add and we will sign off. His effusion is not large enough to perform pericardiocentesis for diagnosis and does not have an indication for therapeutic intervention at this time. Exam (Progress Note) - Constitutional Vitals: Period Temp Pulse Resp BP Sys/Bey Pulse Ox Last 24 Hr 97.6 F-99.6 F 80-102 17-24 121-147/60-83 97-100 Exam: General: Present: Other (no acute distress; underweight) HEENT: Present: EOMI, Normocephaly Neck: Present: No JVD, No bruit. Cardiac: Present: Regular Rhythm, No Murmur, Tachycardia. Absent: Bradycardia Lungs: Present: Breath sounds diminished/absent on left. Coarse breath sounds right lower lung. Slight inspiratory and expiratory wheeze right upper lung. Supplemental oxygen via nasal cannula (4L) Neuro: Present: Grossly Intact. Absent: Numbness, Tingling, Weakness, Resting Tremor Abdomen: Present: Soft, Active Bowel Sounds, No Masses. Absent: Ascites, Tender , Firm, Distended Skin: Present: Other (warm, dry, intact). Absent: Rash, Suspicious Lesions, Bruising Incision: Present: Incision Site (left chest wall incision site intact, appears to be healing appropriately) Musculoskeletal: Present: Normal Range of Motion Extremities: Present: No Clubbing, No Cyanosis, Normal Upper Extr. Pulses (3+ bilaterally), Normal Lower Extr. Pulses (2-3+ bilaterally), Edema (trace BLE's; scrotal edema improved ), Normal Capillary Refill. Absent: Mottled Result/EKG - Labs CBC & BMP: 05/10/17 06:37 05/10/17 06:37 Lab Results: I have reviewed the past 24 hour labs Labs: Laboratory Results - last 24 hr 05/11/17 12:09 Vancomycin Trough 18.0 - Diagnostic Findings Procedure: Chest x-ray: image reviewed by me, report reviewed by me (05/11/17: Improvement of infiltrates of right upper lobe and right lower lobe.) - EKG EKG results: interpreted by me, no acute changes EKG shows: sinus rhythm IDelmis Shea, , personally performed the services described in this documentation, ascribed by Jeane Villalobos RN in my presence, and it is both accurate and complete [id number] .
[2017-05-12] MEDS: PIPERACILLIN/TAZOBACTAM 3,375 MG in SODIUM CHLORIDE 0.9% 100 ML IV SCH ×4 (00:21→23:49)
[2017-05-12] MEDS: ALBUTEROL 2.5 MG/3 ML NEB RESP TX SCH ×4 (00:49→19:12)
[2017-05-12 05:14] LABS: Basophils % 0.1 % (0.0-0.8); Eosinophils # 0.3 10*3/uL (0.0-0.87); Eosinophils % 2.2 % (0.00-10.9); Hematocrit 27.8 VOL% (42.0-52.0); Hemoglobin 9.1 GM/DL (14.0-18.0); Immature Granulocytes % 0.8 %; Lymphocytes # 1.6 10*3/uL (1.4-4.0); Mean Corpuscular HGB Conc 32.7 GM/DL (32-36); Mean Corpuscular Hemoglobin 31 PG (27-34); Mean Corpuscular Volume 93.3 FL (87-102); Mean Platelet Volume 10.4 FL (9.6-12.0); Monocytes % 7.3 % (1.7-12.7); Neutrophils % 77.6 % (38.7-73.9); Platelet Count 413 T/CUMM (130-400); Red Blood Count 2.98 MC/CUMM (3.8-5.5); Red Cell Distribution Width 12.2 % (9.3-17.3); White Blood Count 12.9 T/CUMM (4-12)
[2017-05-12 06:00] LABS: Calcium 8.5 MG/DL (8.5-10.1); Magnesium 2.1 MG/DL (1.8-2.4); Osmolality,Calculated 269.1 MOS/KG (273-304); Potassium 3.6 MMOL/L (3.5-5.1)
[2017-05-12] MEDS: VANCOMYCIN INJ 1,000 MG in SODIUM CHLORIDE 0.9% 250 ML IV SCH ×3 (07:22→22:32)
--- NOTE | 2017-05-12 07:35 | Family Practice Progress Note ---
Family Practice - PN: Subj Interval history: Patient states he is doing a little bit better but he is tormented by insomnia. Patient states his back pain is main irritant that is preventing his sleep. He states he is breathing better. His repeat chest x-ray yesterday showed certain improvement in his right-sided infiltrate. His white blood count has come down and his sodiums holding steady at 135. I think we should change his pain medication and I will add Dilaudid instead of the morphine. We will also had some Sonata to help him sleep. I have asked him to increase his activity around the room. His blood cultures were negative at 5 days. Exam (Progress Note) - Constitutional Vitals: Period Temp Pulse Resp BP Sys/Bey Pulse Ox Last 24 Hr 97.6 F-98.3 F 79-99 18-20 116-143/61-77 94-100 Exam: Objective a well-developed white male who is certainly less dyspneic this morning. Repeat chest x-ray yesterday showed improvement in right-sided infiltrate. He is mostly complaining of insomnia and his constant back pain which is a chronic issue. Cardiovascular: Heart rates rapid without murmurs or gallops. Respiratory: Absent breath sounds on the left he has improved expiratory wheezes on the right. Abdomen: Abdomen soft and nontender to palpation. Results - Labs CBC & BMP: 05/12/17 03:43 05/12/17 03:43 Lab Results: I have reviewed the past 24 hour labs Assessment and Plan (1) Acute dyspnea Status: Acute Assessment and plan: 05/07/2017: Bronchodilator therapy will be added. Pulmonary was consulted by the emergency room physician. 05/08/2017: Patient is improved this morning with diuresis. 05/09/2017: Patient has increasing dyspnea this morning with expiratory wheeze. 05/10/2017: Patient's dyspnea has improved this morning. He is being treated for pneumonia. Repeat chest x-ray will be ordered for the a.m. 05/11/2017: Patient is improving slowly 05/12/2017: He is certainly improving in this regard. Current Visit: Yes (2) Pericardial effusion Status: Suspected Assessment and plan: 05/07/2017: Echocardiogram has been ordered. 05/08/2017: Echocardiogram is pending. 05/09/2017: Cardiology is seeing him for this 05/10/2017: He has pericardial effusion appears trivial on echocardiogram. Current Visit: Yes (3) Hyponatremia Status: Acute Assessment and plan: 05/07/2017: Patient is placed on fluid restrictions. Serum and urine osmolality and sodium have been ordered. 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 Patient has responded to fluid restriction. 05/09/2017: Sodium was stable with fluid restriction. 05/10/2017: Serum sodium was 135 this morning. 05/11/2017: We will repeat BMP in a.m. 05/12/2017: Patient's sodium was steady at 135. Current Visit: Yes (4) H/O pneumonectomy Status: Suspected Assessment and plan: 05/07/2017: I will ask Dr. Larkin to see the patient concerning his CT findings. 05/08/2017: Dr. Torres felt CV surgery consult is not necessary at this time. Current Visit: Yes (5) Pneumonia Status: Acute Assessment and plan: 05/12/2017: Patient's infiltrate is improved. Current Visit: Yes
[2017-05-12] MEDS: IPRATROPIUM 500 MCG/2.5 ML NEB RESP TX SCH (07:50)
[2017-05-12] MEDS: LINACLOTIDE 145 MCG CAPSULE PO SCH (08:59)
[2017-05-12] MEDS: HYDROmorphone 2 MG/1 ML VIAL IV PRN ×3 (09:04→20:51)
[2017-05-12] MEDS: SPIRONOLACTONE 25 MG TABLET PO SCH ×2 (09:05→20:49)
[2017-05-12] MEDS: DOCUSATE SODIUM 100 MG CAPSULE PO SCH ×2 (09:05→20:49)
[2017-05-12] MEDS: TAMSULOSIN 0.4 MG CAPSULE PO SCH ×2 (09:05→20:49)
[2017-05-12] MEDS: FUROSEMIDE 40 MG TABLET PO SCH (09:05)
[2017-05-12] MEDS: METOPROLOL SUCCINATE XL 25 MG TABLET PO SCH (09:06)
[2017-05-12] MEDS: predniSONE 20 MG TABLET PO SCH (09:06)
[2017-05-12] MEDS: ALPRAZolam 0.25 MG TABLET PO PRN ×2 (09:06→20:56)
[2017-05-12] MEDS: PANTOPRAZOLE 40 MG TABLET PO SCH ×3 (09:07→20:51)
--- NOTE | 2017-05-12 12:44 | Pulmonology Progress Note ---
Pulmonary - PN: Subj Interval history: The patient is a 62-year-old white man that has a left lung cancer and he underwent a left pneumonectomy about 3 weeks ago. He was doing fairly well to the last few days when he came in short of breath. He has been coughing and having a little bit of chest congestion. He did have some swelling and peripheral edema. He did diurese fairly well. Over the weekend he was started on IV antibiotics. His sputum is fairly clear. He has not had any definite fever. Last night he said he did not sleep very well. He just could not get comfortable but was not having that much shortness of breath. He is sitting up and eating and says he feels better. He does have some chronic back pain. His shortness of breath overall is better. Exam (Progress Note) - Constitutional Vitals: Period Temp Pulse Resp BP Sys/Bey Pulse Ox Last 24 Hr 97.6 F-98.3 F 79-99 18-20 116-164/61-77 94-100 Exam: General appearance: mild distress (The patient is a thin middle-aged man that looks comfortable sitting up and is in no distress.) - Head Head exam: Present: normal inspection, normocephalic - Eye Eye exam: Present: EOMI. Absent: scleral icterus Pupils: Present: SANTO - ENT ENT exam: Present: normal exam - Neck Neck exam: Present: normal inspection, other (He does have increased JVD). Absent: lymphadenopathy, thyromegaly - Respiratory Respiratory exam: Present: His right lung has good air movement sounds much clearer today. I do not hear any rales or consolidation. - Cardiovascular Cardiovascular exam: Present: JVD, regular rate and rhythm. Absent: gallop, rubs, systolic murmur - GI/Abdominal GI/Abdominal exam: Present: normal bowel sounds, soft. Absent: organomegaly, tenderness - Extremities Exam Extremities exam: Present: His leg swelling is much better. He does have trace ankle edema - Neurological Exam Neurological exam: Present: alert, oriented X3, CN II-XII intact - Psychiatric Psychiatric exam: Present: anxious - Skin Skin exam: Present: warm, dry Results - Labs CBC & BMP: 05/12/17 03:43 05/12/17 03:43 Assessment and Plan (1) Lung cancer Status: Acute Assessment and plan: The patient has been found to have a left lung cancer and had a left pneumonectomy about 3 weeks ago. He did fairly well with surgery early on. Overall he is looking a little better. Current Visit: Yes (2) Pleural effusion Status: Acute Assessment and plan: He has diuresed well and the right pleural effusion has resolved. His right lung sounds fairly clear now. Current Visit: Yes (3) SOB (shortness of breath) Status: Acute Assessment and plan: His shortness of breath came on fairly suddenly and suggests some mild overload. He does have some COPD also. He seems to be responding better and his shortness of breath is better. He is breathing more comfortably now. Current Visit: Yes (4) Pericardial effusion Status: Suspected Assessment and plan: He has only a little pericardial effusion on echo. Current Visit: Yes (5) Hyponatremia Status: Acute Assessment and plan: His sodium is up to 135. Current Visit: Yes (6) H/O pneumonectomy Status: Suspected Assessment and plan: He has had a left pneumonectomy and did fairly well with the surgery. The left chest is not completely filled with fluid yet but is getting there. Current Visit: Yes (7) Abnormal liver function test Status: Acute Assessment and plan: He may have some passive congestion and his liver tests are getting better. He is not having any abdominal complaints. Current Visit: Yes
[2017-05-12] MEDS: ZALEPLON 5 MG CAPSULE PO SCH (20:49)
[2017-05-13] MEDS: ALBUTEROL 2.5 MG/3 ML NEB RESP TX SCH ×4 (00:45→18:50)
[2017-05-13] MEDS: HYDROmorphone 2 MG/1 ML VIAL IV PRN ×2 (02:41→21:22)
[2017-05-13] MEDS: ALPRAZolam 0.25 MG TABLET PO PRN ×2 (02:42→21:21)
[2017-05-13 06:49] LABS: Albumin 2.2 G/DL (3.4-5.0); Bilirubin,Direct 0.1 MG/DL (0.0-0.20); Bilirubin,Indirect 0.4 MG/DL (0.0-1.0); Bilirubin,Total 0.5 MG/DL (0.2-1.0); Calcium 8.3 MG/DL (8.5-10.1); Osmolality,Calculated 267.1 MOS/KG (273-304); Potassium 3.4 MMOL/L (3.5-5.1); Total Protein 5.2 G/DL (6.4-8.3)
--- NOTE | 2017-05-13 07:07 | Family Practice Progress Note ---
Family Practice - PN: Subj Interval history: Patient states he had a better night and is breathing better. He obviously still not feeling well and he is having quite a bit of difficulty with his IV access. I told him he is improving to the point he should be able go home 1 or 2 days. I think we need to find out what his oxygen saturations are off oxygen and see if he qualifies for home O2. Exam (Progress Note) - Constitutional Vitals: Period Temp Pulse Resp BP Sys/Bey Pulse Ox Last 24 Hr 97.9 F-98.3 F 76-96 18-20 118-164/66-77 94-100 Exam: Objective a well-developed white male who is certainly less dyspneic this morning. Patient states she slept little better last night. Cardiovascular: Heart rates rapid without murmurs or gallops. Respiratory: Absent breath sounds on the left, he is wheeze free on the right.. Abdomen: Abdomen soft and nontender to palpation. Results - Labs CBC & BMP: 05/12/17 03:43 05/13/17 05:51 Lab Results: I have reviewed the past 24 hour labs Assessment and Plan (1) Acute dyspnea Status: Acute Assessment and plan: 05/07/2017: Bronchodilator therapy will be added. Pulmonary was consulted by the emergency room physician. 05/08/2017: Patient is improved this morning with diuresis. 05/09/2017: Patient has increasing dyspnea this morning with expiratory wheeze. 05/10/2017: Patient's dyspnea has improved this morning. He is being treated for pneumonia. Repeat chest x-ray will be ordered for the a.m. 05/11/2017: Patient is improving slowly 05/12/2017: He is certainly improving in this regard. 05/13/2017: Patient is wheeze free this morning. Current Visit: Yes (2) Pericardial effusion Status: Suspected Assessment and plan: 05/07/2017: Echocardiogram has been ordered. 05/08/2017: Echocardiogram is pending. 05/09/2017: Cardiology is seeing him for this 05/10/2017: He has pericardial effusion appears trivial on echocardiogram. Current Visit: Yes (3) Hyponatremia Status: Chronic Assessment and plan: 05/07/2017: Patient is placed on fluid restrictions. Serum and urine osmolality and sodium have been ordered. 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 Patient has responded to fluid restriction. 05/09/2017: Sodium was stable with fluid restriction. 05/10/2017: Serum sodium was 135 this morning. 05/11/2017: We will repeat BMP in a.m. 05/12/2017: Patient's sodium was steady at 135. Current Visit: Yes (4) H/O pneumonectomy Status: Suspected Assessment and plan: 05/07/2017: I will ask Dr. Larkin to see the patient concerning his CT findings. 05/08/2017: Dr. Torres felt CV surgery consult is not necessary at this time. Current Visit: Yes (5) Pneumonia Status: Acute Assessment and plan: 05/12/2017: Patient's infiltrate is improved. 05/13/2017: Patient is certainly clinically improved. Current Visit: Yes
[2017-05-13] MEDS: VANCOMYCIN INJ 1,000 MG in SODIUM CHLORIDE 0.9% 250 ML IV SCH (07:22)
[2017-05-13] MEDS: IPRATROPIUM 500 MCG/2.5 ML NEB RESP TX SCH (08:17)
--- NOTE | 2017-05-13 08:51 | Pulmonology Progress Note ---
Pulmonary - PN: Subj Interval history: The patient is a 62-year-old white man that has a left lung cancer and he underwent a left pneumonectomy about 3 weeks ago. He was doing fairly well until the last few days when he came in short of breath. He has been coughing and having a little bit of chest congestion. He did have some swelling and peripheral edema. He did diurese fairly well. Over the weekend he was started on IV antibiotics. His sputum is fairly clear. He has not had any definite fever. His cultures have been negative. He said he had a little better night although he is not resting very well. He is having trouble with his IVs. We can stop his vancomycin now. He does not have any signs of infection at this point. Exam (Progress Note) - Constitutional Vitals: Period Temp Pulse Resp BP Sys/Bey Pulse Ox Last 24 Hr 97.9 F-98.4 F 76-96 18-20 118-132/60-72 94-100 Exam: General appearance: no distress (The patient is a thin middle-aged man that looks comfortable sitting up and is in no distress.) - Head Head exam: Present: normal inspection, normocephalic - Eye Eye exam: Present: EOMI. Absent: scleral icterus Pupils: Present: SANTO - ENT ENT exam: Present: normal exam - Neck Neck exam: Present: normal inspection, other (He does have increased JVD). Absent: lymphadenopathy, thyromegaly - Respiratory Respiratory exam: Present: His right lung has good air movement sounds much clearer today. I do not hear any rales or consolidation. His lung still sound reasonably clear. - Cardiovascular Cardiovascular exam: Present: JVD, regular rate and rhythm. Absent: gallop, rubs, systolic murmur - GI/Abdominal GI/Abdominal exam: Present: normal bowel sounds, soft. Absent: organomegaly, tenderness - Extremities Exam Extremities exam: Present: His leg swelling is much better. He does have trace ankle edema - Neurological Exam Neurological exam: Present: alert, oriented X3, CN II-XII intact - Psychiatric Psychiatric exam: Present: anxious - Skin Skin exam: Present: warm, dry Results - Labs CBC & BMP: 05/12/17 03:43 05/13/17 05:51 Assessment and Plan (1) Lung cancer Status: Acute Assessment and plan: The patient has been found to have a left lung cancer and had a left pneumonectomy about 3 weeks ago. He did fairly well with surgery early on. Overall he is looking a little better. Current Visit: Yes (2) Pleural effusion Status: Acute Assessment and plan: He has diuresed well and the right pleural effusion has resolved. His right lung sounds fairly clear now. Current Visit: Yes (3) SOB (shortness of breath) Status: Acute Assessment and plan: His shortness of breath came on fairly suddenly and suggests some mild overload. He does have some COPD also. He seems to be responding better and his shortness of breath is better. Overall he looks like his breathing is getting better. Current Visit: Yes (4) Pericardial effusion Status: Suspected Assessment and plan: He has only a little pericardial effusion on echo. He appears to be hemodynamically stable. Current Visit: Yes (5) Hyponatremia Status: Resolved Assessment and plan: His sodium is up to 135. This is been quite stable. Current Visit: Yes (6) H/O pneumonectomy Status: Suspected Assessment and plan: He has had a left pneumonectomy and did fairly well with the surgery. The left chest is not completely filled with fluid yet but is getting there. His breathing seems to be a little better overall. Current Visit: Yes (7) Abnormal liver function test Status: Acute Assessment and plan: He may have some passive congestion and his liver tests are getting better. His liver enzymes are getting close to normal now. Current Visit: Yes
[2017-05-13] MEDS: METOPROLOL SUCCINATE XL 25 MG TABLET PO SCH (08:56)
[2017-05-13] MEDS: DOCUSATE SODIUM 100 MG CAPSULE PO SCH ×2 (08:56→21:30)
[2017-05-13] MEDS: PANTOPRAZOLE 40 MG TABLET PO SCH ×3 (08:56→21:21)
[2017-05-13] MEDS: TAMSULOSIN 0.4 MG CAPSULE PO SCH ×2 (08:57→21:21)
[2017-05-13] MEDS: FUROSEMIDE 40 MG TABLET PO SCH (08:57)
[2017-05-13] MEDS: LINACLOTIDE 145 MCG CAPSULE PO SCH (08:57)
[2017-05-13] MEDS: SPIRONOLACTONE 25 MG TABLET PO SCH ×2 (09:01→21:21)
[2017-05-13] MEDS: predniSONE 20 MG TABLET PO SCH (09:01)
[2017-05-13] MEDS: AMOXICILLIN/CLAV 500 MG TABLET PO SCH ×2 (09:04→21:30)
[2017-05-13] MEDS: PIPERACILLIN/TAZOBACTAM 3,375 MG in SODIUM CHLORIDE 0.9% 100 ML IV SCH (09:12)
[2017-05-13] MEDS: ONDANSETRON 4 MG/2 ML VIAL IV PRN (21:20)
[2017-05-13] MEDS: ZALEPLON 5 MG CAPSULE PO SCH (21:21)
[2017-05-14] MEDS: ALBUTEROL 2.5 MG/3 ML NEB RESP TX SCH ×4 (00:22→18:53)
[2017-05-14] MEDS: HYDROmorphone 2 MG/1 ML VIAL IV PRN (03:45)
[2017-05-14] MEDS: ALPRAZolam 0.25 MG TABLET PO PRN ×3 (03:46→21:39)
[2017-05-14] MEDS: IPRATROPIUM 500 MCG/2.5 ML NEB RESP TX SCH (06:42)
[2017-05-14] MEDS: TAMSULOSIN 0.4 MG CAPSULE PO SCH ×2 (09:07→21:39)
[2017-05-14] MEDS: DOCUSATE SODIUM 100 MG CAPSULE PO SCH ×2 (09:07→21:38)
[2017-05-14] MEDS: AMOXICILLIN/CLAV 500 MG TABLET PO SCH ×2 (09:07→21:38)
[2017-05-14] MEDS: METOPROLOL SUCCINATE XL 25 MG TABLET PO SCH (09:07)
[2017-05-14] MEDS: predniSONE 20 MG TABLET PO SCH (09:08)
[2017-05-14] MEDS: PANTOPRAZOLE 40 MG TABLET PO SCH ×3 (09:08→21:39)
[2017-05-14] MEDS: FUROSEMIDE 40 MG TABLET PO SCH (09:08)
[2017-05-14] MEDS: SPIRONOLACTONE 25 MG TABLET PO SCH ×2 (09:08→21:37)
[2017-05-14] MEDS: LINACLOTIDE 145 MCG CAPSULE PO SCH (09:10)
[2017-05-14] MEDS: ONDANSETRON 4 MG/2 ML VIAL IV PRN ×2 (09:16→21:39)
--- NOTE | 2017-05-14 09:35 | Pulmonology Progress Note ---
Pulmonary - PN: Subj Interval history: The patient is a 62-year-old white man that has a left lung cancer and he underwent a left pneumonectomy about 3 weeks ago. He was doing fairly well until the last few days when he came in short of breath. He has been coughing and having a little bit of chest congestion. He did have some swelling and peripheral edema. He did diurese fairly well. Over the weekend he was started on IV antibiotics. His sputum is fairly clear. He has not had any definite fever. His cultures have been negative. Overall he says he is feeling a little better. He is having to sit up at night because of back pain. He has had some thoracic disc problems. He has had a recent left thoracotomy. He has been very sore. His shortness of breath is better and is not wearing oxygen now. He is not coughing much at all now. Overall he is doing a little more activity. Will check a chest x-ray tomorrow and he can probably go home. Exam (Progress Note) - Constitutional Vitals: Period Temp Pulse Resp BP Sys/Bey Pulse Ox Last 24 Hr 97.4 F-99.3 F 72-92 16-20 107-133/58-67 95-99 Exam: General appearance: no distress (The patient is a thin middle-aged man that looks comfortable sitting up and is in no distress. He is breathing comfortably sitting up in a chair without oxygen.) - Head Head exam: Present: normal inspection, normocephalic - Eye Eye exam: Present: EOMI. Absent: scleral icterus Pupils: Present: SANTO - ENT ENT exam: Present: normal exam - Neck Neck exam: Present: normal inspection, Absent: lymphadenopathy, thyromegaly - Respiratory Respiratory exam: Present: His right lung has good air movement sounds much clearer today. I do not hear any rales or consolidation. His lung still sound reasonably clear. - Cardiovascular Cardiovascular exam: Present: His heart rate is regular without a gallop or rub now. - GI/Abdominal GI/Abdominal exam: Present: normal bowel sounds, soft. Absent: organomegaly, tenderness - Extremities Exam Extremities exam: Present: He has no leg pain or swelling now. - Neurological Exam Neurological exam: Present: alert, oriented X3, CN II-XII intact - Psychiatric Psychiatric exam: Present: anxious - Skin Skin exam: Present: warm, dry Results - Labs CBC & BMP: 05/12/17 03:43 05/13/17 05:51 Assessment and Plan (1) Lung cancer Status: Acute Assessment and plan: The patient has been found to have a left lung cancer and had a left pneumonectomy about 3 weeks ago. He did fairly well with surgery early on. Overall he is looking a little better. Current Visit: Yes (2) Pleural effusion Status: Acute Assessment and plan: He has diuresed well and the right pleural effusion has resolved. His right lung sounds fairly clear now. Current Visit: Yes (3) SOB (shortness of breath) Status: Acute Assessment and plan: His shortness of breath was probably related to some mild volume overload and COPD. He is breathing much better now. Will check a chest x-ray tomorrow if he continues to do well, he can probably go home. Current Visit: Yes (4) Pericardial effusion Status: Suspected Assessment and plan: He has only a little pericardial effusion on echo. He appears to be hemodynamically stable. Current Visit: Yes (5) Hyponatremia Status: Resolved Assessment and plan: His sodium is up to 135. This is been quite stable. Current Visit: Yes (6) H/O pneumonectomy Status: Suspected Assessment and plan: He has had a left pneumonectomy and did fairly well with the surgery. The left chest is not completely filled with fluid yet but is getting there. His breathing seems to be a little better overall. Current Visit: Yes (7) Abnormal liver function test Status: Acute Assessment and plan: He may have some passive congestion and his liver tests are getting better. His liver enzymes are getting close to normal now. Current Visit: Yes
[2017-05-14] MEDS ORDERED: POTASSIUM CHLORIDE 20 MEQ TABLET PO SCH (10:00)
--- NOTE | 2017-05-14 11:43 | Internal Med Progress Note ---
Assessment and Plan (1) Acute dyspnea Status: Acute Assessment and plan: 62-year-old male admitted to acute care * Dyspnea. Probably secondary to combination of pneumonectomy and COPD. He is improving. Repeat chest x-ray in the morning. She will continue antibiotics for possible pneumonia * History of lung cancer. Status post pneumonectomy * Hypokalemia. Will replace potassium * Will follow the patient in the absence of Dr. Ferrari Current Visit: Yes (2) Lung cancer Status: Acute Current Visit: Yes (3) H/O pneumonectomy Status: Suspected Current Visit: Yes Internal Medicine - PN: Subj Interval history: 62-year-old male with history of left lung cancer status post left pneumonectomy , COPD, hypertension who was admitted with shortness of breath. He is slowly improving. He felt better this morning. He still had a lot of pain during the night. He denies any nausea or vomiting. Exam (Progress Note) - Constitutional Vitals: Period Temp Pulse Resp BP Sys/Bey Pulse Ox Last 24 Hr 97.4 F-99.3 F 72-92 16-20 107-133/58-67 95-99 General appearance: normal weight - Head Head exam: Present: normal inspection - Eye Eye exam: Present: EOMI Pupils: Present: SANTO - Neck Neck exam: Present: normal inspection - Respiratory Respiratory exam: Present: other (Absent breath sounds on the left side. Few rhonchi on the right) - Cardiovascular Cardiovascular exam: Present: regular rate and rhythm - GI/Abdominal GI/Abdominal exam: Present: normal bowel sounds, soft. Absent: tenderness - Extremities Exam Extremities exam: Present: normal inspection. Absent: edema Results - Labs CBC & BMP: 05/12/17 03:43 05/13/17 05:51 Lab Results: I have reviewed the past 24 hour labs
[2017-05-14] MEDS: ZALEPLON 5 MG CAPSULE PO SCH (21:38)
[2017-05-15] MEDS: ALBUTEROL 2.5 MG/3 ML NEB RESP TX SCH ×4 (00:05→20:43)
[2017-05-15 05:39] LABS: Calcium 8.2 MG/DL (8.5-10.1); Potassium 3.3 MMOL/L (3.5-5.1)
[2017-05-15] MEDS: ALPRAZolam 0.25 MG TABLET PO PRN (05:45)
--- NOTE | 2017-05-15 07:14 | XRay Report ---
History is short of breath Comparison 05/11/2017 Mediastinal contours grossly unchanged. Left heart border again obscured by marked hazy opacity in the left chest consistent with posterior layering of the fluid the in the left chest postpneumonectomy. The air remains in the pleural space anteriorly and superiorly as on the prior exam Lung markings in the right grossly unchanged Impression: No interval change PROCEDURE INTERPRETED AT [facility] DEPARTMENT OF RADIOLOGY Final Report Signed by: Dr. Nadia Donato
[2017-05-15] MEDS: LINACLOTIDE 145 MCG CAPSULE PO SCH (07:33)
[2017-05-15] MEDS: IPRATROPIUM 500 MCG/2.5 ML NEB RESP TX SCH (07:37)
--- NOTE | 2017-05-15 07:59 | Pulmonology Progress Note ---
Pulmonary - PN: Subj Interval history: This 62-year-old white male had a left pneumonectomy about a month ago. He came in with a chest x-ray that looked on the wet. He has been diuresed and empirically treated for infection. His x-ray is improved. He still gets somewhat short of breath with exercise. We need to check an exercise O2 sat to see if he will need oxygen at home. It may take him a few months to get used to breathing on just one lung. Exam (Progress Note) - Constitutional Vitals: Period Temp Pulse Resp BP Sys/Bey Pulse Ox Last 24 Hr 97.9 F-99.6 F 75-93 18-21 107-159/57-73 95-100 Exam: Patient's alert oriented vital signs normal. Pupils react to light. Throat is clear. Neck supple no bruits. Chest shows good breath sounds on the right. I do not hear any rales. No breath sounds on the left. Heart normal rate rhythm no murmurs. Abdomen soft nontender. Bowel sounds present. Extremities no clubbing cyanosis or edema. Calves nontender Results - Labs CBC & BMP: 05/12/17 03:43 05/15/17 03:29 Lab Results: I have reviewed the past 24 hour labs - Diagnostic Findings Procedure: Chest x-ray: image reviewed by me (Right lung essentially clear. Left lung with pneumonectomy and postoperative fluid as one would expect) Assessment and Plan (1) H/O pneumonectomy Status: Suspected Assessment and plan: Patient had left pneumonectomy for lung cancer about a month ago. Needs follow- up radiographically. The fluid in the left hemithorax takes up about three quarters of his thoracic space on that side which is about what I would expect. In another few weeks it should totally opacify the left chest. 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 Current Visit: Yes (2) Lung cancer Status: Acute Assessment and plan: Follow-up with oncology. Current Visit: Yes
--- NOTE | 2017-05-15 08:23 | Internal Med Progress Note ---
Assessment and Plan (1) Acute dyspnea Status: Acute Assessment and plan: 62-year-old male admitted to acute care * Dyspnea. Probably secondary to combination of pneumonectomy and COPD. Slow improvement. Check pulse ox on exertion * History of lung cancer. Status post pneumonectomy * Hypokalemia. Will replace potassium * Consult urology for difficulty voiding Current Visit: Yes (2) Lung cancer Status: Acute Current Visit: Yes (3) H/O pneumonectomy Status: Suspected Current Visit: Yes Internal Medicine - PN: Subj Interval history: 62-year-old male with history of left lung cancer status post left pneumonectomy , COPD, hypertension who was admitted with shortness of breath. He is slowly improving. He has difficulty emptying his bladder. He gets short of breath on exertion. Exam (Progress Note) - Constitutional Vitals: Period Temp Pulse Resp BP Sys/Bey Pulse Ox Last 24 Hr 97.9 F-99.6 F 75-93 18-21 108-159/57-73 95-100 Exam: Examination: GENERAL: NAD. NECK: Neck is supple. No JVD. No carotid bruit. No thyromegaly. CVS: Regular rate and rhythm. S1 and S2 are normal. RESPIRATORY: Good breath sounds on the right no breath sounds on the left ABDOMEN: Soft and nontender. Bowel sounds are present. No hepatosplenomegaly. EXT: No edema. SKIN: Warm and dry. MSK: No obvious deformity. Results - Labs CBC & BMP: 05/12/17 03:43 05/15/17 03:29 Lab Results: I have reviewed the past 24 hour labs
[2017-05-15] MEDS: AMOXICILLIN/CLAV 500 MG TABLET PO SCH ×2 (09:35→21:41)
[2017-05-15] MEDS: predniSONE 20 MG TABLET PO SCH (09:35)
[2017-05-15] MEDS: SPIRONOLACTONE 25 MG TABLET PO SCH ×2 (09:35→21:43)
[2017-05-15] MEDS: DOCUSATE SODIUM 100 MG CAPSULE PO SCH ×2 (09:35→21:40)
[2017-05-15] MEDS: METOPROLOL SUCCINATE XL 25 MG TABLET PO SCH (09:35)
[2017-05-15] MEDS: FUROSEMIDE 40 MG TABLET PO SCH (09:36)
[2017-05-15] MEDS: POTASSIUM CHLORIDE 20 MEQ TABLET PO SCH ×2 (09:36→21:41)
[2017-05-15] MEDS: TAMSULOSIN 0.4 MG CAPSULE PO SCH ×2 (09:36→21:41)
[2017-05-15] MEDS: PANTOPRAZOLE 40 MG TABLET PO SCH ×3 (09:36→21:43)
--- NOTE | 2017-05-15 12:49 | Urology Consultation ---
Assessment and Plan - Time spent with patient Time spent with patient: Less than 30 minutes (1) BPH loc w urin obs/LUTS Status: Acute Assessment and plan: Continue his medicine. I think he can go home. I will follow-up in 3 weeks. Current Visit: Yes History of Present Illness - Data of Consult Patient: known to practice within the last 3 years Consult date: 05/15/17 Requesting Physician: Kwadwo Vargas - Consult Narrative Reason for consult: BPH with lower urinary tract symptoms History of present illness: Mr. Gardiner is a 62 year old male who is well known to me. I have seen him for many years. He has had BPH for quite some time. He is now on Flomax twice a day he developed urinary retention with his recent pneumonectomy that he had done I believe in [place]. And we remove his catheter gave him a voiding trial. He actually presented to emergency room to have a catheter placed and had some other medical problems. But he is now here and is improving as we go. His residual bladder by bladder scan was 0. So he is doing better. He says he has a small stream but he empties. He is a very anxious man, I have seen him for approximately 20 years. I think he is doing okay. As far as I am concerned he can go home he does. He does have an appointment to see me in 1 week, change after 3 weeks. He will continue his Flomax twice a day. If he has any problems concerning his urinary tract he will call me. CC: Ronnie Ferrari MD - Home Medications and Allergies Home Medications: Home Medications Medication Instructions Recorded Confirmed Type ALPRAZolam [Alprazolam] 0.25 mg PO Q6HR PRN 05/07/17 05/07/17 History Docusate Sodium 100 mg PO BID 05/07/17 05/07/17 History Hydrocodone/Acetaminophen 0.5 each PO Q4HR PRN 05/07/17 05/07/17 History [Hydrocodon-Acetaminophn 10-325] Ketorolac Tab [Toradol Tab] 10 mg PO Q4HR 05/07/17 05/07/17 History Metoprolol Succinate Xl [Toprol Xl] 25 mg PO DAILY 05/07/17 05/07/17 History Omeprazole [Omeprazole] 20 mg PO BID 05/07/17 05/07/17 History Polyethylene Glycol Powder 17 gm PO DAILY PRN 05/07/17 05/07/17 History [Miralax] Tamsulosin [Flomax] 0.4 mg PO BID 05/07/17 05/07/17 History Tiotropium Inhalation [Spiriva 18 mcg INH ONCE 05/07/17 05/07/17 History Handihaler] Allergies/Adverse Reactions: Allergies Allergy/AdvReac Type Severity Reaction Status Date / Time Gatifloxacin [From Tequin] Allergy Intermediate RASH Verified 05/06/17 21:17 12 point system: reviewed and no additional remarkable complaints except as stated Exam - Constitutional Vitals: Period Temp Pulse Resp BP Sys/Bey Pulse Ox Last 24 Hr 97.4 F-99.6 F 75-94 18-20 108-150/57-73 95-100 Results - Labs CBC & BMP: 05/12/17 03:43 05/15/17 03:29 Lab Results: I have reviewed the past 24 hour labs
[2017-05-15] MEDS ORDERED: ZALEPLON 5 MG CAPSULE PO PRN (16:51)
[2017-05-15] MEDS: ZALEPLON 5 MG CAPSULE PO SCH (21:42)
[2017-05-16] MEDS: ALBUTEROL 2.5 MG/3 ML NEB RESP TX SCH ×2 (01:57→08:18)
[2017-05-16 05:09] LABS: Calcium 8.1 MG/DL (8.5-10.1); Osmolality,Calculated 267.1 MOS/KG (273-304); Potassium 3.8 MMOL/L (3.5-5.1)
[2017-05-16] MEDS: LINACLOTIDE 145 MCG CAPSULE PO SCH (07:53)
[2017-05-16 08:09] VITALS: BP 123/69
[2017-05-16] MEDS: IPRATROPIUM 500 MCG/2.5 ML NEB RESP TX SCH (08:18)
[2017-05-16] MEDS: TAMSULOSIN 0.4 MG CAPSULE PO SCH (08:45)
[2017-05-16] MEDS: DOCUSATE SODIUM 100 MG CAPSULE PO SCH (08:45)
[2017-05-16] MEDS: AMOXICILLIN/CLAV 500 MG TABLET PO SCH (08:45)
[2017-05-16] MEDS: predniSONE 20 MG TABLET PO SCH (08:45)
[2017-05-16] MEDS: METOPROLOL SUCCINATE XL 25 MG TABLET PO SCH (08:46)
[2017-05-16] MEDS: SPIRONOLACTONE 25 MG TABLET PO SCH (08:46)
[2017-05-16] MEDS: FUROSEMIDE 40 MG TABLET PO SCH (08:46)
[2017-05-16] MEDS: POTASSIUM CHLORIDE 20 MEQ TABLET PO SCH (08:46)
[2017-05-16] MEDS: PANTOPRAZOLE 40 MG TABLET PO SCH ×2 (08:46→09:47)
--- NOTE | 2017-05-16 08:53 | Pulmonology Progress Note ---
Pulmonary - PN: Subj Interval history: This 62-year-old white male had a left pneumonectomy about a month ago. He came in with a chest x-ray that looked on the wet. He has been diuresed and empirically treated for infection. His x-ray is improved. He still gets somewhat short of breath with exercise. We need to check an exercise O2 sat to see if he will need oxygen at home. It may take him a few months to get used to breathing on just one lung. 05/16/2017 patient is doing better. He has some rhonchi in the right lung. He has a Spiriva inhaler to use at home. He was advised to use that once a day. He needs an albuterol rescue inhaler as well. We will have that called in at discharge. He will need follow-up from a pulmonary standpoint with Dr. Torres. Will get appointment set up with him in about a month. Exam (Progress Note) - Constitutional Vitals: Period Temp Pulse Resp BP Sys/Bey Pulse Ox Last 24 Hr 98.2 F-100 F 79-94 16-20 103-123/55-69 95-99 Exam: Patient's alert oriented vital signs normal. Pupils react to light. Throat is clear. Neck supple no bruits. Chest shows good breath sounds on the right. I do not hear any rales, but he does have some rhonchi. No breath sounds on the left. Heart normal rate rhythm no murmurs. Abdomen soft nontender. Bowel sounds present. Extremities no clubbing cyanosis or edema. Calves nontender Results - Labs CBC & BMP: 05/12/17 03:43 05/16/17 04:00 Lab Results: I have reviewed the past 24 hour labs Assessment and Plan (1) H/O pneumonectomy Status: Suspected Assessment and plan: Patient had left pneumonectomy for lung cancer about a month ago. Needs follow- up radiographically. The fluid in the left hemithorax takes up about three quarters of his thoracic space on that side which is about what I would expect. In another few weeks it should totally opacify the left chest. 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 05/16/2017 status post left pneumonectomy. Postoperative radiographic changes are about as expected. Will have restrictive lung disease going forward. Needs follow-up with Dr. Torres for pulmonary. Current Visit: Yes (2) Lung cancer Status: Acute Assessment and plan: Follow-up with oncology. Current Visit: Yes Specialty Discharge - Follow Up or Referrals
--- NOTE | 2017-05-16 09:49 | Discharge Summary ---
Hospital Course - Hospital Course Hospital Course: 62-year-old male with history of lung cancer and status post left pneumonectomy , anxiety, hypertension, reflux, BPH was admitted with increased shortness of breath. He was seen in consultation by cardiology and pulmonary medicine. Patient was started on steroids and nebulizer treatments. He has gradually improved over last 10 days. His medications have been adjusted. He has been started on Lasix and Aldactone along with potassium. His electrolytes are stable this morning. He is still having anxiety and is on Xanax as needed. He is being discharged home. He will follow up with Dr. Ferrari in 1 week in the office. Diagnosis - Discharge Diagnosis (1) Acute dyspnea Status: Acute (2) Lung cancer Status: Acute (3) H/O pneumonectomy Status: Suspected Specialty Discharge - Follow Up or Referrals Discharge Plan - Discharge Data Disposition: Disch To Home/Self Care Condition at Discharge: Stable Discharge Diet: advance to your usual diet Activity: resume usual activities as tolerated - Discharge Medications New Furosemide Tab [Lasix Tab] 40 mg PO DAILY #30 tablet Linaclotide [Linzess] 145 mcg PO AC BREAKFAST capsule Potassium Chloride Cap/Tab [K Dur] 20 meq PO BID #60 tablet Spironolactone [Aldactone] 6.25 mg PO BID #60 tablet Amoxicillin/Clav Tab [Augmentin Tab] 500 mg PO BID #10 tablet predniSONE TAB [PredniSONE] 20 mg PO DAILY #10 tablet Continue Ketorolac Tab [Toradol Tab] 10 mg PO Q4HR Metoprolol Succinate Xl [Toprol Xl] 25 mg PO DAILY Polyethylene Glycol Powder [Miralax] 17 gm PO DAILY PRN PRN Reason: Constipation Tiotropium Inhalation [Spiriva Handihaler] 18 mcg INH ONCE #1 ALPRAZolam [Alprazolam] 0.25 mg PO Q6HR PRN PRN Reason: Anxiety Docusate Sodium 100 mg PO BID Omeprazole 20 mg PO BID Hydrocodone/Acetaminophen [Hydrocodon-Acetaminophn 10-325] 0.5 each PO Q4HR PRN PRN Reason: Pain Tamsulosin [Flomax] 0.4 mg PO BID - Follow Up or Referral - Forms/Instructions Instructions: Hyponatremia (DC), Dyspnea (GEN) Additional Discharge Instructions: Appointment with Dr. Ferrari with TCM in 1 week. Please call in medications on discharge. Check BMP on next office visit Exam - Constitutional Vitals: Period Temp Pulse Resp BP Sys/Bey Pulse Ox Last 24 Hr 98.2 F-100 F 79-94 16-20 103-123/55-69 95-99 Exam: Examination: GENERAL: NAD. NECK: Neck is supple. No JVD. No carotid bruit. No thyromegaly. CVS: Regular rate and rhythm. S1 and S2 are normal. RESPIRATORY: Good breath sounds on the right no breath sounds on the left ABDOMEN: Soft and nontender. Bowel sounds are present. No hepatosplenomegaly. EXT: No edema. SKIN: Warm and dry. MSK: No obvious deformity. Discharge Results Labs on day of discharge: Labs from last 24 hours 05/16/17 04:00 Sodium 135 L Potassium 3.8 Chloride 96 L Carbon Dioxide 32 Anion Gap 10.8 BUN 9 Creatinine 0.80 GFR Calculation 106 BUN/Creatinine Ratio 11.00 Glucose 89 Calculated Osmolality 267.1 L Calcium 8.1 L DS: Provider Date of admission: 05/06/17 23:24 Primary care physician: Ronnie Ferrari MD Attending physician on admission: Ronnie Ferrari MD Consults: 05/06/17 23:24 Consult to Case Mgmt/Social Srvs [CONS] Routine Reason for Case Mgmt/Social Srvs: Discharge Planning 05/06/17 23:26 Consult to Physician [CONS] Routine Comment: Consulting Provider: Alessandro Torres Consulting Provider Notified: No When should Consulting Provider be notified: In am 05/07/17 02:37 Consult to Dietitian [CONS] Routine Reason for Dietitian: Other 05/07/17 07:45 Consult to Physician [CONS] Routine Comment: Consulting Provider: Cardiology - [facility] Person Notified: Cathleen Date Notified: 05/07/17 Time Notified: 08:40 05/15/17 08:26 Consult to Physician [CONS] Routine Comment: Difficulty voiding Consulting Provider: Alfie Ferrari Person Notified: Ines Date Notified: 05/15/17 Time Notified: 08:40 Discharging clinician: Kwadwo Vargas MD
== END 2017-05-16 11:00 | disposition home or self-care (01) | DRG 186 ==
LOC: N.ED 20:36 → N.EDINP 23:24 → N.TELEN 23:41
PROVIDERS: ADMIT Family Medicine; ATTEND Family Medicine